=== PATIENT | female | born 1975 | race Two or more races ===

== ENCOUNTER 2023-08-09 11:04 | Outpatient (RCR) | payer BC, SELFPAY ==
[2023-07-13 13:23] LABS: % Basophils 1.2 % (0-2); % Eosinophils 3.1 % (0-6); % Lymphocytes 40.9 % (20.5-51.1); % Monocytes 7.1 % (1.7-9.3); % Neutrophils 47.7 % (42.2-75.2); Absolute Basophils 0.1 10^3/uL (0-0.2); Absolute Eosinophils 0.1 10^3/uL (0-0.7); Absolute Lymphocytes 1.7 10^3/uL (1.2-3.4); Absolute Monocytes 0.3 10^3/uL (0.1-0.6); Hematocrit 37.1 % (37.0-47.0); Hemoglobin 12.8 g/dL (12.0-16.0); Mean Corp Hgb Conc. 34.5 g/dL (33.0-37.0); Mean Corpuscular Volume 89.8 fL (81.0-99.0); Mean Platelet Volume 9.5 fL (7.4-10.4); Platelet Count 238 10^3/uL (130-400); Red Blood Cell Count 4.13 10^6/uL (4.20-5.40); Red Cell Dist. Width 15.4 % (11.5-14.5); White Blood Cell Count 4.2 10^3/uL (4.8-10.8)
[2023-07-13 14:37] LABS: ALT (SGPT) 35 U/L (0-35); AST (SGOT) 30 U/L (14-36); Albumin 4.8 g/dl (3.5-5.0); Alkaline Phosphatase 65 U/L (38-126); Blood Urea Nitrogen 10 mg/dl (7-17); Carbon Dioxide 28 mmol/L (22-30); Chloride 104 mmol/L (98-107); Glucose 100 mg/dl (70-99); Potassium 4.3 mmol/L (3.5-5.1); Sodium 140 mmol/L (135-145); Total Bilirubin 0.5 mg/dl (0.2-1.3); Total Protein 7.9 g/dl (6.3-8.2); eGFR > 60.00
[2023-07-14 14:40] VITALS: BP 131/74
[2023-07-14] MEDS: XGEVA 120 MG SC (15:05)
[2023-07-14] MEDS: LEUPROLIDE 11.25 MG IM (15:06)
[2023-08-09 11:15] LABS: % Eosinophils 2.7 % (0-6); % Immature Granulocytes 0.2 % (0-0.5); % Lymphocytes 43.4 % (20.5-51.1); % Monocytes 8.4 % (1.7-9.3); % Neutrophils 44.3 % (42.2-75.2); Absolute Eosinophils 0.1 10^3/uL (0-0.7); Absolute Lymphocytes 1.8 10^3/uL (1.2-3.4); Absolute Monocytes 0.3 10^3/uL (0.1-0.6); Absolute Neutrophils 1.8 10^3/uL (1.4-6.5); Hemoglobin 12.9 g/dL (12.0-16.0); Mean Corp Hgb Conc. 34.9 g/dL (33.0-37.0); Mean Corpuscular Hgb 31.2 pg (27.0-31.0); Mean Corpuscular Volume 89.6 fL (81.0-99.0); Mean Platelet Volume 9.6 fL (7.4-10.4); Platelet Count 231 10^3/uL (130-400); Red Blood Cell Count 4.13 10^6/uL (4.20-5.40)
[2023-08-09 12:08] LABS: ALT (SGPT) 30 U/L (0-35); AST (SGOT) 28 U/L (14-36); Albumin 4.7 g/dl (3.5-5.0); Alkaline Phosphatase 66 U/L (38-126); Blood Urea Nitrogen 10 mg/dl (7-17); Calcium 9.1 mg/dl (8.4-10.2); Carbon Dioxide 27 mmol/L (22-30); Chloride 107 mmol/L (98-107); Glucose 94 mg/dl (70-99); Potassium 4.2 mmol/L (3.5-5.1); Sodium 141 mmol/L (135-145); Total Bilirubin 0.6 mg/dl (0.2-1.3); Total Protein 7.8 g/dl (6.3-8.2); eGFR > 60.00
== END 2023-08-10 15:44 | disposition home or self-care (01) ==
LOC: OID 11:04
PROVIDERS: ATTENDING PHYSICIAN Internal Medicine Hematology & Oncology; PRIMARYCARE PHYSICIAN Internal Medicine
DX: C50.412 Malignant neoplasm of upper-outer quadrant of left female breast (principal); C79.51 Secondary malignant neoplasm of bone; R93.7 Abnormal findings on diagnostic imaging of other parts of musculoskeletal system; R74.01 Elevation of levels of liver transaminase levels
CPT/HCPCS: 96372; 36415; 80053; 85025; 96402; J0897; J1950

== ENCOUNTER → 2023-09-02 09:13 | Outpatient (REF) | payer BC, SELFPAY | LOC: PET 09:13 | PROVIDERS: ATTENDING PHYSICIAN Internal Medicine Hematology & Oncology | DX: C50.412 Malignant neoplasm of upper-outer quadrant of left female breast (principal) | CPT/HCPCS: 78815; A9552 ==

== ENCOUNTER 2023-09-07 15:08 | Outpatient (RCR) | payer BC, SELFPAY | END 2023-09-07 23:59 | disposition home or self-care (01) | LOC: RPT 15:08 | PROVIDERS: ATTENDING PHYSICIAN Internal Medicine Hematology & Oncology; FAMILY PHYSICIAN Internal Medicine | DX: R93.7 Abnormal findings on diagnostic imaging of other parts of musculoskeletal system (principal); C79.51 Secondary malignant neoplasm of bone; C50.412 Malignant neoplasm of upper-outer quadrant of left female breast; Z73.6 Limitation of activities due to disability | CPT/HCPCS: 97110; 97112; 97161 ==

== ENCOUNTER 2023-10-06 15:38 | Outpatient (RCR) | payer BC, SELFPAY ==
[2023-10-05 14:17] LABS: % Basophils 1.1 % (0-2); % Eosinophils 2.5 % (0-6); % Immature Granulocytes 0.2 % (0-0.5); % Lymphocytes 41.3 % (20.5-51.1); % Monocytes 5.8 % (1.7-9.3); % Neutrophils 49.1 % (42.2-75.2); Absolute Basophils 0.1 10^3/uL (0-0.2); Absolute Eosinophils 0.1 10^3/uL (0-0.7); Absolute Lymphocytes 1.9 10^3/uL (1.2-3.4); Absolute Monocytes 0.3 10^3/uL (0.1-0.6); Absolute Neutrophils 2.2 10^3/uL (1.4-6.5); Hematocrit 38.4 % (37.0-47.0); Hemoglobin 13.5 g/dL (12.0-16.0); Mean Corp Hgb Conc. 35.2 g/dL (33.0-37.0); Mean Corpuscular Hgb 32.7 pg (27.0-31.0); Mean Platelet Volume 9.9 fL (7.4-10.4); Platelet Count 224 10^3/uL (130-400); Red Blood Cell Count 4.13 10^6/uL (4.20-5.40); White Blood Cell Count 4.5 10^3/uL (4.8-10.8)
[2023-10-05 16:07] LABS: ALT (SGPT) 43 U/L (0-35); AST (SGOT) 38 U/L (14-36); Alkaline Phosphatase 63 U/L (38-126); Blood Urea Nitrogen 12 mg/dl (7-17); Calcium 10.2 mg/dl (8.4-10.2); Carbon Dioxide 27 mmol/L (22-30); Chloride 104 mmol/L (98-107); Glucose 106 mg/dl (70-99); Potassium 3.9 mmol/L (3.5-5.1); Sodium 139 mmol/L (135-145); Total Bilirubin 0.4 mg/dl (0.2-1.3); Total Protein 8.5 g/dl (6.3-8.2); eGFR > 60.00
[2023-10-06 13:45] VITALS: BP 135/99
[2023-10-06] MEDS: LEUPROLIDE 11.25 MG IM (15:52)
== END 2023-10-07 09:07 | disposition home or self-care (01) ==
LOC: OID 15:38
PROVIDERS: ATTENDING PHYSICIAN Internal Medicine Hematology & Oncology
DX: Z51.11 Encounter for antineoplastic chemotherapy (principal); C79.51 Secondary malignant neoplasm of bone; C50.912 Malignant neoplasm of unspecified site of left female breast; R93.7 Abnormal findings on diagnostic imaging of other parts of musculoskeletal system; Z17.0 Estrogen receptor positive status [ER+]
CPT/HCPCS: 36415; 80053; 85025; 96402; J1950

== ENCOUNTER → 2023-10-21 12:03 | Outpatient (REF) | payer BC, SELFPAY ==
[2023-10-21 12:28] LABS: % Basophils 1.2 % (0-2); % Immature Granulocytes 0.3 % (0-0.5); % Lymphocytes 19.9 % (20.5-51.1); % Monocytes 6.9 % (1.7-9.3); % Neutrophils 70.7 % (42.2-75.2); Absolute Basophils 0.1 10^3/uL (0-0.2); Absolute Eosinophils 0.1 10^3/uL (0-0.7); Absolute Lymphocytes 1.2 10^3/uL (1.2-3.4); Absolute Monocytes 0.4 10^3/uL (0.1-0.6); Absolute Neutrophils 4.2 10^3/uL (1.4-6.5); Hemoglobin 11.6 g/dL (12.0-16.0); Mean Corp Hgb Conc. 36.3 g/dL (33.0-37.0); Mean Corpuscular Hgb 33.1 pg (27.0-31.0); Mean Corpuscular Volume 91.4 fL (81.0-99.0); Mean Platelet Volume 9.5 fL (7.4-10.4); Nucleated Red Blood Cells % 0 %; Platelet Count 272 10^3/uL (130-400); Red Cell Dist. Width 13.2 % (11.5-14.5)
[2023-10-21 12:56] LABS: ALT (SGPT) 57 U/L (0-35); AST (SGOT) 51 U/L (14-36); Albumin 4.7 g/dl (3.5-5.0); Alkaline Phosphatase 75 U/L (38-126); Blood Urea Nitrogen 9 mg/dl (7-17); Calcium 9.2 mg/dl (8.4-10.2); Carbon Dioxide 30 mmol/L (22-30); Chloride 105 mmol/L (98-107); Glucose 99 mg/dl (70-99); Sodium 139 mmol/L (135-145); Total Bilirubin 0.4 mg/dl (0.2-1.3); Total Protein 7.9 g/dl (6.3-8.2); eGFR > 60.00
== END ==
LOC: REG 12:03
PROVIDERS: ATTENDING PHYSICIAN Student in an Organized Health Care Education/Training Program
DX: J06.9 Acute upper respiratory infection, unspecified (principal); D84.9 Immunodeficiency, unspecified
CPT/HCPCS: 36415; 80053; 85025; 87502

== ENCOUNTER 2023-10-23 19:26 | Inpatient (IN) | payer BC, SELFPAY ==
[2023-10-23 12:56] VITALS: BP 122/87
--- NOTE | 2023-10-23 14:54 | ED.GENMED ---
History of Present Illness
<Marylu Granados PA-C - Last Filed: 10/24/23 13:00>
General
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
Source: patient
Exam Limitations: none
Time Seen by Provider: 10/23/23 14:07
Nursing documentation reviewed up to this point in time: agreed with
Travel History
Have you had any contact with someone who has COVID-19?: No
Do you have any symptoms of coronavirus? Fever > 100 degrees, chills, cough, shortness of breath, sore throat, loss of taste or smell, muscle aches, or headache?: No
History of Present Illness
History of Present Illness:
48-year-old female with a history of stage IV breast CA on the hormone therapy
Complains of left labial majora swelling over the last several days. She says it actually started out as a few bumps on the left labia majora and then the right labia had 1 bump as well. She says that because of ongoing issues with temperatures
that have been elevated in the 100-1 01 range over the last month she was recently seen by infectious disease. Infectious disease physician noted the bumps and called her in doxycycline and Flagyl. Patient has been taking them for the last 2 days
but she had worsening swelling and pain to the left labia which is larger in size and diffusely red. She also has some pain in her left inguinal region but does not appreciate any lymph nodes. She has had temperatures, last taken was last night
and was around 100. She has not taken any tylenol or ibuprofen today for pain.
She denies nausea, vomiting, diarrhea, cough, cold symptoms, urinary symptoms. Patient has not had blood cultures checked while she had these fevers. She has had flu and COVID and RSV which were negative.
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
Past History
<Marylu Granados PA-C - Last Filed: 10/24/23 13:00>
Past History
ED Past Medical History: GERD, HTN and Other (Menorrhagia)
ED Past Surgical History: and Gynecological (Hysterectomy September 15, 2021)
Social History
Tobacco: Non-smoker
Personal:
Living: with family
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
Family History
Family History: Other (Noncontributory)
Review of Systems
<Marylu Granados PA-C - Last Filed: 10/24/23 13:00>
Review of Systems
Allergies reviewed?: Yes
All Other Systems: Not applicable
Phy Exam
<KOBY Dixon Last Filed: 10/24/23 13:00>
Physical Exam
Physical Exam:
GENERAL: Alert , in no apparent distress
EYE: pupils equal and reactive
NECK: Supple
ENT: o/p clr, mmm.
CARDIAC: Regular rate and rhythm .no edema
LUNGS: Clear breath sounds bilaterally, no acute respiratory distress, no wheezes/rales/rhonchi
ABDOMEN: Soft, without focal tenderness, no r/g, no cvat, normal bowel sounds
Left inguinal region mildly tender, no lymphadenopathy appreciated, no swelling
: Mildly swollen left labia majora, there is a very subtle possibility of a small half a centimeter sized indurated area at the inferior aspect, there is no fluctuance, labia minora normal, no Bartholin's gland cyst
Left inguinal region mildly tender without erythema, no crepitus
NEUROLOGICAL: Alert and oriented, no focal neuro deficits
SKIN: Warm and dry, skin intact.
MUSCULOSKELETAL: No edema, well perfused. neg lavelle's sign
PSYCH: Normal and appropriate interaction.
Course
<KOBY Dixon Last Filed: 10/24/23 13:00>
Orders/Labs/Results
Orders:
Orders
10/23/23 14:43
CT Abd/Pel (IV only)-DH only Urgent
Comment: breast ca stageIV
Reason For Exam: left labial swelling and redness despite abx
CR Chest - 2 Views Urgent
Comment:
Reason For Exam: fever x 1 mo
10/23/23 14:44
0.9% Sodium Chloride 1000 ml [Nss] 1,000 ml IV BOLUS
Ketorolac [Toradol] 15 mg IV NOW STA
10/23/23 Dinner
Regular
At Your Request: Full Participation
Does patient need a safe tray?: No
10/23/23 15:11
Complete Blood Count/With Diff Urgent
Comprehensive Metabolic Panel Urgent
Lactic Acid Urgent
Urinalysis Reflex To Culture Urgent
Date Specimen was Collected: 10/23/23
Time Specimen was Collected: 14:54
Blood Culture Q30M
GERRY Source: Blood/Venous
Specimen Description:
10/23/23 18:12
CAP AND HAT PRODUCTION SUPERVISOR CONSULT Routine
Consulting Provider: Chastity Silva
Was physician already notified: Yes
10/23/23 18:20
Blood Culture Q30M
GERRY Source: Blood/Venous
Specimen Description:
10/23/23 18:24
Ampicillin/Sulbactam 3 G [Unasyn] 3 gm 0.9% Sodium Chloride 100 ml [Nss] 100 ml IV NOW
Vancomycin [Vancocin] 1,250 mg 0.9% Sodium Chloride 250 ml [Nss] 250 ml IV NOW
10/23/23 19:02
Admit/Transfer Patient As Directed
Co-Sign Provider:
Level of Care: Inpatient admission
Assign to:: Medical/Surgical
Physician / Group: balaji smith
Diagnosis: left labial cellulitis, chronic fevers
Reason for Hospitalization: left labial cellulitis
Expected length of stay greater than two midnights?: Yes
ELOS- Estimated Length of Stay in days: 3
I certify the patient meets the requirements for IP care: Yes
10/23/23 19:04
Code Status As Directed
Resuscitation Status: Full Code
10/23/23 19:23
Tramadol HCl [Ultram] 50 mg PO NOW STA
10/23/23 21:55
Bisacodyl [Dulcolax] 10 mg RECTAL [id number] PRN
Docusate W/Senna [Senokot-S] 1 tablet PO BIDPRN PRN
Ketorolac [Toradol] 30 mg IV Q6HPRN PRN
Oxycodone [Roxicodone] 5 mg PO Q4HPRN PRN
Polyethylene Glycol Powder [Miralax] 17 grams PO DAILYPRN PRN
Tramadol HCl [Ultram] 50 mg PO Q6HPRN PRN
10/23/23 21:55
Activity As Directed
Activity Level: As Tolerated
Pneumatic Compression Sleeves As Directed
Type: Knee high
Vital Signs As Directed
Frequency: Per unit guidelines
Warm Compress [Heat Application] As Directed
Apply warm compress to (location):: left labia
Compress Frequency:: Intermittent q2h
Duration of Application: No longer than 20 minutes
Comment: moist heat
Ot Eval And Treat Routine
Pt Eval And Treat Routine
Activity Level: As Tolerated
DX Deep Vein Thrombosis Video Routine
10/24/23 00:00
Ampicillin/Sulbactam 3 G [Unasyn] 3 gm 0.9% Sodium Chloride 100 ml [Nss] 100 ml IV Q6H
10/24/23 07:37
Complete Blood Count/With Diff IN AM
Comprehensive Metabolic Panel IN AM
10/25/23 06:00
Complete Blood Count/With Diff IN AM
Comprehensive Metabolic Panel IN AM
10/26/23 06:00
Complete Blood Count/With Diff IN AM
Comprehensive Metabolic Panel IN AM
Abnormal Lab Results
10/23/23
15:11
RBC 3.67 L 10^6/uL
(4.20-5.40)
Hct 33.0 L %
(37.0-47.0)
MCH 32.7 H pg
(27.0-31.0)
Absolute Monos (auto) 0.7 H 10^3/uL
(0.1-0.6)
Monocytes % 10.3 H %
(1.7-9.3)
Potassium 3.3 L mmol/L
(3.5-5.1)
Glucose 104 H mg/dl
(70-99)
AST 101 H U/L
(14-36)
ALT 181 H U/L
(0-35)
10/23/23 15:11
10/23/23 15:11
Vital Signs
Temp: 100.6 F
Initial and Last Documented VS:
Initial Vital Signs
Temp Pulse Resp BP Pulse Ox
98.6 F 94 18 122/87 98
10/23/23 12:56 10/23/23 12:56 10/23/23 12:56 10/23/23 12:56 10/23/23 12:56
Last Documented Vital Signs
Temp Pulse Resp BP Pulse Ox
97.9 F 75 18 111/73 98
10/24/23 07:30 10/24/23 07:30 10/24/23 07:30 10/24/23 07:30 10/24/23 07:30
<Cruzito Boucher, DO - Last Filed: 10/23/23 18:15>
Orders/Labs/Results
Orders:
Orders
10/23/23 14:43
CT Abd/Pel (IV only)-DH only Urgent
Comment: breast ca stageIV
Reason For Exam: left labial swelling and redness despite abx
CR Chest - 2 Views Urgent
Comment:
Reason For Exam: fever x 1 mo
10/23/23 14:44
0.9% Sodium Chloride 1000 ml [Nss] 1,000 ml IV BOLUS
Ketorolac [Toradol] 15 mg IV NOW STA
10/23/23 Dinner
Regular
At Your Request: Full Participation
Does patient need a safe tray?: No
10/23/23 15:11
Complete Blood Count/With Diff Urgent
Comprehensive Metabolic Panel Urgent
Lactic Acid Urgent
Urinalysis Reflex To Culture Urgent
Date Specimen was Collected: 10/23/23
Time Specimen was Collected: 14:54
Blood Culture Q30M
GERRY Source: Blood/Venous
Specimen Description:
10/23/23 18:12
CAP AND HAT PRODUCTION SUPERVISOR CONSULT Routine
Consulting Provider: Chastity Silva
Was physician already notified: Yes
10/23/23 18:20
Blood Culture Q30M
GERRY Source: Blood/Venous
Specimen Description:
10/23/23 18:24
Ampicillin/Sulbactam 3 G [Unasyn] 3 gm 0.9% Sodium Chloride 100 ml [Nss] 100 ml IV NOW
Vancomycin [Vancocin] 1,250 mg 0.9% Sodium Chloride 250 ml [Nss] 250 ml IV NOW
10/23/23 19:02
Admit/Transfer Patient As Directed
Co-Sign Provider:
Level of Care: Inpatient admission
Assign to:: Medical/Surgical
Physician / Group: balaji smith
Diagnosis: left labial cellulitis, chronic fevers
Reason for Hospitalization: left labial cellulitis
Expected length of stay greater than two midnights?: Yes
ELOS- Estimated Length of Stay in days: 3
I certify the patient meets the requirements for IP care: Yes
10/23/23 19:04
Code Status As Directed
Resuscitation Status: Full Code
10/23/23 19:23
Tramadol HCl [Ultram] 50 mg PO NOW STA
10/23/23 21:55
Bisacodyl [Dulcolax] 10 mg RECTAL [id number] PRN
Docusate W/Senna [Senokot-S] 1 tablet PO BIDPRN PRN
Ketorolac [Toradol] 30 mg IV Q6HPRN PRN
Oxycodone [Roxicodone] 5 mg PO Q4HPRN PRN
Polyethylene Glycol Powder [Miralax] 17 grams PO DAILYPRN PRN
Tramadol HCl [Ultram] 50 mg PO Q6HPRN PRN
10/23/23 21:55
Activity As Directed
Activity Level: As Tolerated
Pneumatic Compression Sleeves As Directed
Type: Knee high
Vital Signs As Directed
Frequency: Per unit guidelines
Warm Compress [Heat Application] As Directed
Apply warm compress to (location):: left labia
Compress Frequency:: Intermittent q2h
Duration of Application: No longer than 20 minutes
Comment: moist heat
Ot Eval And Treat Routine
Pt Eval And Treat Routine
Activity Level: As Tolerated
DX Deep Vein Thrombosis Video Routine
10/24/23 00:00
Ampicillin/Sulbactam 3 G [Unasyn] 3 gm 0.9% Sodium Chloride 100 ml [Nss] 100 ml IV Q6H
10/24/23 07:37
Complete Blood Count/With Diff IN AM
Comprehensive Metabolic Panel IN AM
10/25/23 06:00
Complete Blood Count/With Diff IN AM
Comprehensive Metabolic Panel IN AM
10/26/23 06:00
Complete Blood Count/With Diff IN AM
Comprehensive Metabolic Panel IN AM
Abnormal Lab Results
10/23/23
15:11
RBC 3.67 L 10^6/uL
(4.20-5.40)
Hct 33.0 L %
(37.0-47.0)
MCH 32.7 H pg
(27.0-31.0)
Absolute Monos (auto) 0.7 H 10^3/uL
(0.1-0.6)
Monocytes % 10.3 H %
(1.7-9.3)
Potassium 3.3 L mmol/L
(3.5-5.1)
Glucose 104 H mg/dl
(70-99)
AST 101 H U/L
(14-36)
ALT 181 H U/L
(0-35)
10/23/23 15:11
10/23/23 15:11
Vital Signs
Initial and Last Documented VS:
Initial Vital Signs
Temp Pulse Resp BP Pulse Ox
98.6 F 94 18 122/87 98
10/23/23 12:56 10/23/23 12:56 10/23/23 12:56 10/23/23 12:56 10/23/23 12:56
Last Documented Vital Signs
Temp Pulse Resp BP Pulse Ox
97.9 F 75 18 111/73 98
10/24/23 07:30 10/24/23 07:30 10/24/23 07:30 10/24/23 07:30 10/24/23 07:30
Maureenlt;Marylu Granados PA-C - Last Filed: 10/24/23 13:00>
MDM/Problems Addressed
Differential Diagnosis Includes:
Cellulitis, abscess, necrotizing process
MDM/Problems Addressed:
48-year-old female with stage IV breast cancer with ongoing elevated temperatures over the last month presents for painful swelling to her left labia majora a few days ago with fever to 100.6 currently despite 2 days of doxycycline and Flagyl
ordered by the infectious disease doctor
She has no history of diabetes, there is no obvious gangrenous infection, there is no obvious Morales's
The history would suggest may be folliculitis with cellulitis, there is not an obvious appreciated abscess large enough for incision and drainage without imaging at this point. Seen by ED attending who agreed. Will order sepsis labs and CT of the
abdomen pelvis and likely admit to the hospital for IV antibiotics for failure of outpatient therapy
<Marylu Granados PA-C - Last Filed: 10/24/23 13:00>
*Critical Care Note
Total Time (30-74mins, 75-104mins- exclusive of procedures): Not Applicable
<Cruzito Boucher DO - Last Filed: 10/23/23 18:15>
Update Note
Update Note:
6:[address] negative for acute pathology. There is no abscess collection to drain. Given the failure of outpatient antibiotics, will start IV antibiotics. Will start vancomycin and Unasyn.
ED Attending Note
<Marylu Granados PA-C - Last Filed: 10/24/23 13:00>
-
Portions of this chart may have been created with voice recognition software.� Occasional wrong word or��sound alike� substitutions may have occurred due to the inherent limitations of voice recognition software.
<Cruzito Boucher, DO - Last Filed: 10/23/23 18:15>
ED Attending Note
Patient seen and examined by attending physician: Yes
I performed the substantive portion of visit, reviewed & personally made and approve the management plan that is documented in note by myself or VASU.: Yes
ED Attending Note:
I have seen and evaluated the patient with a [id number] encounter. I have spoken to the advance practicer provider and involved in the medical history, the physical exam, medical decision making.
Evaluation and management service: agree unless noted differently below.
Results interpretation: agree unless noted differently below.
Focused HPI: 48-year-old female presenting with vaginal pain. Patient has stage IV breast cancer and developed bumps around her vagina. She saw infectious disease and was started on doxycycline. She had already finished a course of Augmentin.
Patient is concerned because her vagina is swollen and painful
Physical exam: Sitting bed comfortably. Small palpable nodule in the left labia. Mild surrounding cellulitic changes
Medical Decision Making: Unsure if this is abscess or not. Patient appears to be failing outpatient antibiotics. Will obtain CT looking for any evidence of deep space infection or abscess.
Discharge Plan
Departure
Patient Disposition: Admit
Date of Disposition: 10/23/23
Time of Disposition: 18:15
Admit to: Med/Surg
Presentation/result/management discussed w/ accepting MD/DO: Hospitalist
Discharge Problem:
Cellulitis
Interventions
Interventions:
*Risk Screen - Suicide Last Done: 10/23/23 12:56
*General Assessment Last Done: 10/23/23 12:56
*Neglect/Abuse Screening Last Done: 10/23/23 15:04
ED- Fall Risk Assessment Last Done: 10/23/23 15:04
*ED COVID-19 Vaccine History Last Done: 10/23/23 12:56
*Nursing Disposition Last Done: 10/23/23 22:02
ED-Female Genitourinary Assessment Last Done: 10/23/23 15:04
Discharge Date and Time
Discharge Date/Time: 10/23/23 22:04
[2023-10-23 15:01] VITALS: BMI 27.1
[2023-10-23] MEDS: TORADOL 15 MG IV (15:14)
[2023-10-23] MEDS: NSS 1000 IV (15:17)
[2023-10-23 15:35] LABS: % Basophils 0.8 % (0-2); % Eosinophils 0.6 % (0-6); % Immature Granulocytes 0.3 % (0-0.5); % Lymphocytes 24.1 % (20.5-51.1); % Monocytes 10.3 % (1.7-9.3); % Neutrophils 63.9 % (42.2-75.2); Absolute Basophils 0.1 10^3/uL (0-0.2); Absolute Lymphocytes 1.6 10^3/uL (1.2-3.4); Absolute Monocytes 0.7 10^3/uL (0.1-0.6); Absolute Neutrophils 4.2 10^3/uL (1.4-6.5); Mean Corp Hgb Conc. 36.4 g/dL (33.0-37.0); Mean Corpuscular Hgb 32.7 pg (27.0-31.0); Mean Corpuscular Volume 89.9 fL (81.0-99.0); Mean Platelet Volume 9.3 fL (7.4-10.4); Nucleated Red Blood Cells % 0 %; Platelet Count 277 10^3/uL (130-400); Red Blood Cell Count 3.67 10^6/uL (4.20-5.40); White Blood Cell Count 6.5 10^3/uL (4.8-10.8)
[2023-10-23 15:37] LABS: Urine Albumin Negative (Neg - Trace); Urine Bilirubin Negative (Negative); Urine Character Clear (Clear); Urine Color Straw; Urine Glucose Negative (Negative); Urine Ketone Negative (Negative); Urine Leukocyte Negative (Negative); Urine Nitrite Negative (Negative); Urine Occult Blood Negative (Negative); Urine Urobilinogen Negative (Neg - 1+)
[2023-10-23 15:38] LABS: Lactic Acid 0.9 mmol/L (0.7-2.0)
[2023-10-23 15:47] LABS: ALT (SGPT) 181 U/L (0-35); AST (SGOT) 101 U/L (14-36); Albumin 4.8 g/dl (3.5-5.0); Alkaline Phosphatase 102 U/L (38-126); Blood Urea Nitrogen 9 mg/dl (7-17); Calcium 9.9 mg/dl (8.4-10.2); Carbon Dioxide 26 mmol/L (22-30); Chloride 103 mmol/L (98-107); Estimated Creatinine Clearance 104 ml/min; Glucose 104 mg/dl (70-99); Potassium 3.3 mmol/L (3.5-5.1); Sodium 140 mmol/L (135-145); Total Bilirubin 0.5 mg/dl (0.2-1.3); Total Protein 8.2 g/dl (6.3-8.2); eGFR > 60.00
--- NOTE | 2023-10-23 18:40 | HPS.HSE ---
Family Physician
<IRVIN Block - Last Filed: 10/23/23 19:22>
-
Family Physician: Hailee Novoa
Chief Complaint
<IRVIN Block - Last Filed: 10/23/23 19:22>
History of Present Illness
48-year-old female complaining of left labial swelling over the last several days she reports it started as a few bumps on the left labia majora with 1 bump to the right labia majora. She had ongoing temperatures 100-103 over the last month and was
being treated for sinusitis finished course of Augmentin but had recurrence of fevers.. She was seen by infectious disease who placed on doxycycline and Flagyl. She reports over the last 2 days she has had worsening swelling and pain to the left
labia with diffuse erythema and temperature of 100.6 F. She has been taking Tylenol on and off of the past month but has not over the past few days as she and her have been concerned about her increasing transaminitis. She has not had any
blood cultures drawn for 1 month of fever. She denies any vaginal discharge, itching, headache, chest pain, palpitations, shortness of breath, cough, abdominal pain, nausea, vomiting, diarrhea.
She is past medical history of stage IV breast cancer on current hormone therapy Dx April 2023 ER positive, negative genetic testing, HTN, migraines, GERD, uterine fibroids/hysterectomy bilateral salpingo-oophorectomy, ureteral stent, iron
deficiency anemia
<Diego Alexandra MD - Last Filed: 10/24/23 01:04>
-
None
Medical History
<IRVIN Block - Last Filed: 10/23/23 19:22>
Past Medical History
Past Medical History: Reports Other
Additional Past Medical History:
Stage IV breast cancer on current hormone therapy Dx April 2023 ER positive, negative genetic testing-on Lupron/letrozole, Xgeva and Verzenio on hold
HTN
migraines
GERD
uterine fibroids/hysterectomy bilateral salpingo-oophorectomy required ureteral stent during surgery had postop sepsis
iron deficiency anemia
Past Surgical History: Reports Other
Additional Past Surgical History:
uterine fibroids/hysterectomy bilateral salpingo-oophorectomy required ureteral stent during surgery had postop sepsis
Social History
Tobacco: Non-smoker
Alcohol: None
Drug: None
Personal:
Living: With Family ()
Family History
Family History: Other (No family history of breast cancer)
Allergies / Home Medications
Allergies reflects when Allergies were last updated in [facility].
Home Medications with original date entered in [facility]
<Diego Alexandra MD - Last Filed: 10/24/23 01:04>
Allergies / Home Medications
Allergy/Medication List:
Allergies
Allergy/AdvReac Type Severity Reaction Status Date / Time
codeine Allergy Nausea / Verified 10/23/23 12:59
Vomiting
Sulfa (Sulfonamide Allergy Rash Verified 10/23/23 12:59
Antibiotics)
Home Medications
sertraline 100 mg tablet (Zoloft) 50 mg PO HS 04/21/23
Excedrin Migraine 1 tab PO DAILY PRN migraine 10/23/23
Flagyl 500 mg PO TID 10/23/23
Lupron Depot (3 month) 3.75 mg IM DIRECTED 10/23/23
M.V.I. 1 tab PO DAILY 10/23/23
abemaciclib 150 mg tablet (Verzenio) 150 mg PO BID 10/23/23
acetaminophen 500 mg tablet (Tylenol Extra Strength) 500 mg PO TIDPRN PRN mild pain/fever 10/23/23
amlodipine 10 mg tablet 10 mg PO DAILY 10/23/23
denosumab 120 mg/1.7 mL (70 mg/mL) subcutaneous solution (Xgeva) 120 mg SC Q4W 10/23/23
doxycycline hyclate 100 mg tablet 100 mg PO BID 10/23/23
hydrochlorothiazide 12.5 mg tablet 12.5 mg PO DAILY 10/23/23
ibuprofen 200 mg tablet 200 mg PO BIDPRN PRN mild pain 10/23/23
lansoprazole 40 mg PO DAILY 10/23/23
letrozole 2.5 mg tablet 2.5 mg PO DAILY 10/23/23
ncycbziz-mzj-cykuz ac 400 mcg-calcium carb 500 mg-vit K1 20 mcg tablet (Women's 50 Plus Multivitamin) 1 tab PO DAILY 10/23/23
zolpidem 10 mg tablet 10 mg PO HS PRN insomnia 10/23/23
Review of Systems
<IRVIN Block - Last Filed: 10/23/23 19:22>
-
History Source: Patient and Family ( at bedside)
A 12 point ROS was completed and negative except as noted: Yes
Constitutional: Reports Fever and Chills; Denies Fatigue
EENT: Denies Sore Throat or Runny Nose
Respiratory: Denies Cough or Trouble Breathing
Cardiac: Denies Chest Pain, Diaphoresis, Palpitations or Syncope
Abdomen/GI: Reports Abdominal Pain; Denies Nausea, Vomiting, Diarrhea, Constipated or Bloody Stools
: Reports Other (Left labial swelling/slight erythema); Denies Dysuria, Frequency, Flank Pain, Incontinence or Difficulty Voiding
Musculoskeletal: Denies Joint Pain or Edema
Skin: Denies Itching or Rash
Neurological: Denies Dizzy, Headache or Weakness
Endocrine: Reports No Symptoms
Hematologic/Lymphatic: Reports No Symptoms
Psych: Reports Calm
Physical Exam
<IRVIN Block - Last Filed: 10/23/23 19:22>
Vital Signs
Vital Signs
Temp Pulse Resp BP Pulse Ox
100.6 F H 94 18 122/87 98
10/23/23 15:00 10/23/23 12:56 10/23/23 12:56 10/23/23 12:56 10/23/23 12:56
Physical Exam
General: Conversant, Pain and Fever
HEENT: NormoCephalic, Anicteric and PERRLA
Respiratory: Clear; No Wheezes, Rales or Rhonchi
Cardiac: S1/S2 and Regular Rhythm; No Murmur, Rub, Gallop or Peripheral Edema
Breast: Deferred by me
GI: Soft, Non Tender, Non Distended, Normal Bowel Sounds and No Hepatosplenomegaly
Genito-urinary: Other (Left labial majora swelling with tenderness and slight erythema no open areas or drainage)
Musculoskeletal: No Clubbing, No Cyanosis and No Edema
Skin: Warm and Dry; No Rash or Jaundice
Neuro: AO x 3, No Motor Deficits, Nonfocal/grossly intact, Cranial Nerves Intact and No Sensory Deficits; No Slurred Speech, Facial Droop or Tremors
Psych: Calm
Laboratory Results
<IRVIN Block - Last Filed: 10/23/23 19:22>
-
10/23/23 15:11
10/23/23 15:11
Laboratory Results
Lactic Acid 0.9 mmol/L (0.7-2.0) 10/23/23 15:11
Total Bilirubin 0.5 mg/dl (0.2-1.3) 10/23/23 15:11
AST 101 U/L (14-36) H 10/23/23 15:11
ALT 181 U/L (0-35) H 10/23/23 15:11
Alkaline Phosphatase 102 U/L (38-126) 10/23/23 15:11
Data Reviewed
<IRVIN Block - Last Filed: 10/23/23 19:22>
-
CT Scan: Report Reviewed by me
Lab Data: Labs Reviewed by me
Impression/Plan
<IRVIN Block - Last Filed: 10/23/23 19:22>
-
Impression/plan:
Admit to [facility]
#Vaginal cellulitis left labial
-On current course of doxycycline 100 mg twice daily x 3 days and Flagyl 500 mg 3 times daily x 2 days per ID
WBC 6.5, temp 100.6 F, HR 94
UA negative
-Warm compresses to left labia
-Blood cultures x 2
-IV Toradol, mild pain, tramadol moderate pain, oxycodone with Zofran severe pain
-IV vancomycin, IV Unasyn
-Consult TIPPLE TENDER-follows with Dr. López
CT abdomen pelvis IV contrast only
1. No significant acute abnormality identified in the abdomen or pelvis
2. Scattered small osteoblastic lesions throughout the visualized bones similar to prior
3. No overt inflammatory change or fluid collections within the pelvis/perineum
CXR: No acute cardiopulmonary disease
#Hypokalemia
K3.3
KCl 40 mEq
-Continue HCTZ 12.5 mg daily
#Acute transaminitis
AST 101, ALT 181(have increased from baseline 40s since September)
#Stage IV breast cancer ER positive Dx April 2023
-On current hormone therapy Lupron every 3 months last dose September 2023, letrozole 2.5 mg daily
-Follows with [facility]
-Xgeva and verzenio (abemaciclib)currently on hold past 2 to 3 months due to upcoming dental procedure
#HTN�benign
Continue amlodipine 5 mg daily, HCTZ 12.5 mg daily
#Migraine history-no current headache
-Takes as needed Excedrin
#GERD
-Takes episodic lansoprazole
#Hx uterine fibroids/hysterectomy bilateral salpingo-oophorectomy required Hx ureteral stent during surgery had postop sepsis
#Iron deficiency anemia
Hgb 12�stable
#Depression
Zoloft 50 mg daily-
DVT prophylaxis
SCDs
Full code
<Diego Alexandra MD - Last Filed: 10/24/23 01:04>
-
Impression/plan:
Admit to [facility]
#Vaginal cellulitis left labial
-On current course of doxycycline 100 mg twice daily x 3 days and Flagyl 500 mg 3 times daily x 2 days per ID
WBC 6.5, temp 100.6 F, HR 94
UA negative
-Warm compresses to left labia
-Blood cultures x 2
-IV Toradol, mild pain, tramadol moderate pain, oxycodone with Zofran severe pain
-IV vancomycin, IV Unasyn
-Consult TIPPLE TENDER-follows with Dr. López
CT abdomen pelvis IV contrast only
1. No significant acute abnormality identified in the abdomen or pelvis
2. Scattered small osteoblastic lesions throughout the visualized bones similar to prior
3. No overt inflammatory change or fluid collections within the pelvis/perineum
CXR: No acute cardiopulmonary disease
#Hypokalemia
K3.3
KCl 40 mEq
-Continue HCTZ 12.5 mg daily
#Acute transaminitis
AST 101, ALT 181(have increased from baseline 40s since September)
#Stage IV breast cancer ER positive Dx April 2023
-On current hormone therapy Lupron every 3 months last dose September 2023, letrozole 2.5 mg daily
-Follows with [facility]
-Xgeva and verzenio (abemaciclib)currently on hold past 2 to 3 months due to upcoming dental procedure
#HTN�benign
Continue amlodipine 5 mg daily, HCTZ 12.5 mg daily
#Migraine history-no current headache
-Takes as needed Excedrin
#GERD
-Takes episodic lansoprazole
#Hx uterine fibroids/hysterectomy bilateral salpingo-oophorectomy required Hx ureteral stent during surgery had postop sepsis
#Iron deficiency anemia
Hgb 12�stable
#Depression
Zoloft 50 mg daily-
DVT prophylaxis
SCDs
Full code
ADDENDUM
Patient seen and examined independently. Concur with the findings and assessment and plan in the TOP DISTRIBUTION EXECUTIVE note.
Briefly, has notable history of stage IV ER positive breast ca diagnosed last year and previously on chemo but now on hormone therapy pending dental work. She comes in to the ER for pain and swelling of the left labia majora. She has been having
intermittent fevers over the last 1 month with negative w/u including flu, covid, u/a. No blood cultures. Seen by ID 2 days ago when she had a small labial swelling and started on doxycycline + flagyl. Swelling worsened over the next 2 days
prompting ED visit. Her underlying fever profile is unchanged. Exam is of the labia majory shows soft tissue swelling without erythema, induration. CT abd/pelvis negative for abscess, neck fasciitis or other deep tissue infection. No significant
local adenopathy. Cellulitis suspected.
- trial of broader spec vanc and unasyn ok
- blood cultures sent, consider d/c abx if ngtd in 48 hours
- ID consultation
- video game engineer consultation
--- NOTE | 2023-10-23 19:00 | EDRN ---
Report received introduced myself to patient and started antibiotics
[2023-10-23] MEDS: UNASYN IV ×2 (19:13→23:28)
[2023-10-23 19:17] VITALS: BP 117/82
--- NOTE | 2023-10-23 20:01 | EDRN ---
OBGYN at bedside
--- NOTE | 2023-10-23 20:04 | CS.OBGYN ---
Consult Summary - GPS FIELD DATA COLLECTOR
-
48yo with a recent diagnosis of Stage IV Lobular CA of the Breast (currently being treated with Lupron, Letrozole, Denosumab, Abemaciclib) presents from home due to worsening swelling of her left labia over the last 4-5 days. She states
initially she was noticing various nodules/bumps along the bilateral labia majora L>R, then on the Left started to become more painful, then started to noticing swelling and erythema of the left labium, though no drainage. Of note, she has had
fevers for the past month, initially high grade thought to be related to a sinus infection- she was on augmentin. However fevers have returned and are now low grade Tmax 100.6 at home. With the return of fever and the labial changes, it was thought
she may have a folliculitis and she was started on flagyl and Doxycyline, however after 2 days of this her symptoms seem to be worsening so she presented here as she and her were concerned for Nec. Fascitis. Upon admission, a CT scan was
performed that was unremarkable.
PMHx: Stage IV lobular Breast CA, HTN, Migraines, depression
PSHx: LAY/BS (fibroids, HMB), C/S x2, Tubal Ligation, uterine wedge resection for cornual
POBHx: C/S x2, x1
FHx: mom- DM, HTN M. uncle- CAD
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
Meds: See Admission List
All: Codeine, Sulfa
ROS: Denies n/v, normal appetite. No URI symptoms currently
Vitals and Labs below
CT A/P: No enlarged lymph nodes, no inflammatory changes or fluid collection within the pelvis. Bladder normal, Osteoblastic lesions throughout the visualized bones
CXR: no acute process
Blood Cx: Pending
Gen: nad [email or web address]
Pelvic Exam: There is mild erythema and edema of the left labia, with moderate ttp in the region. No fluctuance appreciated. No crepitus, no significant induration, tissue feels soft. In the deeper labia I can feel 2 nodules vs cysts each <1cm in
size, and not connecting. No eruption to the surface and no drainage able to be expressed. The erythema does not extend to the mons pubis or into the inguinal fold. Labia minora is unremarkable. No palpable LN appreciated in the groin. On palpation
of the right labia, along the medial portion, I can also feel a small cystic lesion. this is non tender with no overlying erythema and no drainage expressed.
A/P: 48yo with Suspected labial cellulitis
1. Cellulitis: at this time, no obvious evidence of a drainable abscess both on physical exam and on CT scan. Also no real concern for Necrotizing fascitis at this time. Advised patient and her that we will monitor the labia every day that
she is here, if exam reveals a drainable collection, then I&D and cultures can be performed. Given failure of outpatient treatment, patient to be admitted and has been started on IV Unasyn and Vancomycin
-Blood cultures collected
-continue warm compress to the area
-pain control as ordered- toradol, tramadol
2. Other Management per primary Team
Vital Signs and Labs
.
Vital Signs and Labs:
Lab Results
10/23/23 15:11
10/23/23 15:11
Tmax 100.6 @1500 (10/23/23)
Temp Pulse Resp BP Pulse Ox
98.0 F 83 16 117/82 99
10/23/23 19:17 10/23/23 19:17 10/23/23 19:17 10/23/23 19:17 10/23/23 19:17
AST 101
ALT 181
[2023-10-23] MEDS: VANCOCIN 275 MG IV (20:11)
--- NOTE | 2023-10-23 20:30 | EDRN ---
Patient reported indigestion which she has a hx of and requesting a juice BENDERed hospitalist who reports she can have one, patient doens't feel the need for the Ultram at this time, aware still waiting on bed to be ready
[2023-10-23] MEDS: TUMS EX (EXTRA STRENGTH) CHEWABLE 1 TABLET PO (20:48)
[2023-10-23 22:06] VITALS: BP 137/96; BMI 28.1
[2023-10-23] MEDS: ULTRAM 50 MG PO (22:10)
[2023-10-23] MEDS: BENADRYL 25 MG PO (22:18)
--- NOTE | 2023-10-23 22:55 | PHA.VAN.IN ---
Assessment
- Assessment
Renal Function: Appears similar to baseline
Maximum Temperature: 100.6
Minimum Temperature: 98
Concomitant Antimicrobials: Ampicillin/Sulbactam
AUC Dosing Plan
- Dosing Variables
Dosing Weight (kg): 69.7kg
Dosing CrCl (ml/min): 106
Vd coefficient (L/kg): 0.7
- Empiric Dosing
Initial / Loading Dose: 1250mg 10/23/23 @2010
Maintenance Regimen: 1000mg Q12H
Estimated AUC (mcg*h/mL): 464
Estimated Peak (mcg*h/mL): 30.6
Estimated Trough (mcg/ml): 11.1
Estimated Half Life (H): 7.5
- Monitoring
No levels ordered at this time: Consider levels in next few days
Pharmacokinetics Vancomycin I
- -
Patient Age: 48
Patient Sex: Female
Vancomycin Day #: 1
Indication: Skin And Soft Tissue
Requesting Provider: Yessenia Villegas
Pertinent Antimicrobial Allergies:
Sulfa
Height / Weight:
Height 5 ft 2 in
Actual Weight 69.655 kg
Pertinent Past Medical History: Stage IV breast cancer
- Vital Signs / Lab Results
Temp Pulse Resp BP Pulse Ox
99.2 F 93 16 137/96 99
10/23/23 22:06 10/23/23 22:06 10/23/23 22:06 10/23/23 22:06 10/23/23 22:06
Lab Results - Hematology
10/23/23
15:11
WBC 6.5
Lab Results - Chemistry
10/23/23
15:11
BUN 9
Creatinine 0.6
Estimated Creat Clear 104
Albumin 4.8
10/23/23
15:11
Lactic Acid 0.9
Lab Results - Urine
10/23/23
15:11
Urine Nitrite (Reflex) Negative
Leukocyte Esterase Rfl Negative
[2023-10-23 23:00] VITALS: BP 135/65
--- NOTE | 2023-10-24 00:44 | PTCARENOTE ---
Received pt from ER at 2200. AAOx3 VSS. Pt c/o 01/17 pain to L labia/groin, medicated per SEP. Pt received with very end of Vanco infusing, however pt reporting itchiness. MANAGER PSYCHIATRY notified and PO Benadryl ordered and administered, instructed to slow rate
of next dose of Vanco down. Oriented to room, call palacio and plan of care.
[2023-10-24] MEDS: TORADOL 30 MG IV (01:53)
[2023-10-24] MEDS: UNASYN IV ×2 (05:53→12:08)
[2023-10-24] MEDS: VANCOCIN 200 IV (06:26)
[2023-10-24 07:30] VITALS: BP 111/73
[2023-10-24 07:50] LABS: % Basophils 0.8 % (0-2); % Eosinophils 1.8 % (0-6); % Immature Granulocytes 0.2 % (0-0.5); % Lymphocytes 33.3 % (20.5-51.1); % Neutrophils 51.9 % (42.2-75.2); Absolute Eosinophils 0.1 10^3/uL (0-0.7); Absolute Lymphocytes 1.7 10^3/uL (1.2-3.4); Absolute Monocytes 0.6 10^3/uL (0.1-0.6); Absolute Neutrophils 2.6 10^3/uL (1.4-6.5); Hematocrit 31.7 % (37.0-47.0); Hemoglobin 11.1 g/dL (12.0-16.0); Mean Corpuscular Hgb 32.8 pg (27.0-31.0); Mean Corpuscular Volume 93.8 fL (81.0-99.0); Mean Platelet Volume 9.4 fL (7.4-10.4); Nucleated Red Blood Cells % 0 %; Platelet Count 221 10^3/uL (130-400); Red Blood Cell Count 3.38 10^6/uL (4.20-5.40); Red Cell Dist. Width 13.1 % (11.5-14.5)
[2023-10-24] MEDS: ULTRAM 50 MG PO ×2 (07:54→14:30)
[2023-10-24 08:27] LABS: ALT (SGPT) 123 U/L (0-35); AST (SGOT) 54 U/L (14-36); Alkaline Phosphatase 83 U/L (38-126); Blood Urea Nitrogen 8 mg/dl (7-17); Calcium 8.7 mg/dl (8.4-10.2); Carbon Dioxide 27 mmol/L (22-30); Chloride 106 mmol/L (98-107); Estimated Creatinine Clearance 106 ml/min; Glucose 115 mg/dl (70-99); Potassium 3.9 mmol/L (3.5-5.1); Sodium 139 mmol/L (135-145); Total Bilirubin 0.3 mg/dl (0.2-1.3); Total Protein 6.8 g/dl (6.3-8.2); eGFR > 60.00
--- NOTE | 2023-10-24 09:31 | CON.ONC ---
Impression
Impression
Labial cellulitis, improving - management as per ID, Sales Representative Publications
Fever - await improvement in fever curve
Broken tooth without evidence of infection
s/p possible sinusitis
Hepatic transaminitis - chronic
Met breast cancer on Lupron/Femara/Verzenio
- hold Verzenio until 7 days after hospital d/c
- continue Femara
Plan
Plan
Continue to hold Verzenio
Femara 2.5 mg daily
Await improvement in fever curve on abx
Patient History
History of Present Illness
Patient is a 48-year-old woman well-known to to me from the outpatient setting for history of lobular breast cancer metastatic to mediastinal lymph nodes and bone. She started Lupron/Femara/Verzenio in April. Restaging scan in August showed
stable mediastinal adenopathy and no metabolic uptake in bone metastases. She has been tolerating Verzenio well other than manageable diarrhea. She has had essentially no cytopenias. When last seen in the office on October 05, she has been having
some low-grade fevers in the setting of sore throat and children being sick. She also reported need for dental work at that time and was seen in part for dental clearance. She had last been treated with Xgeva on August 11. Patient fever failed
to improve. She noted pain and swelling in labia, saw infectious disease, did not respond with outpatient course of oral antibiotics. Yesterday, she had trouble walking due to pain and swelling in the labial area and came to the ER. Cultures are
negative. There was no evidence of source of fever on CT abdomen pelvis or chest x-ray. There was no evidence of abscess or necrotizing fasciitis. The pain and swelling have improved overnight. Her fevers usually occur in mid afternoon so unable
to say at this point whether she has defervesced.
Past-Medical/Surgical History
PMHx: Stage IV lobular Breast CA, HTN, Migraines, depression
PSHx: LAY/BS (fibroids, HMB), C/S x2, Tubal Ligation, uterine wedge resection for cornual
POBHx: C/S x2, x1
FHx: mom- DM, HTN M. uncle- CAD
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
Meds: See Admission List
All: Codeine, Sulfa
Patient Medication
�Medication �Instructions �Recorded �Confirmed �Last Taken �Type
sertraline 100 mg tablet (Zoloft) 50 mg PO HS 04/21/23 10/23/23 10/22/23 History
Excedrin Migraine 1 tab PO DAILY PRN migraine 10/23/23 10/23/23 Unknown History
Flagyl 500 mg PO TID 10/23/23 10/23/23 10/23/23 09:00 History
Lupron Depot (3 month) 3.75 mg IM DIRECTED 10/23/23 10/23/23 Unknown History
M.V.I. 1 tab PO DAILY 10/23/23 10/23/23 10/23/23 09:00 History
abemaciclib 150 mg tablet 150 mg PO BID 10/23/23 10/23/23 10/17/23 History
(Verzenio)
acetaminophen 500 mg tablet 500 mg PO TIDPRN PRN mild 10/23/23 10/23/23 10/22/23 History
(Tylenol Extra Strength) pain/fever
amlodipine 10 mg tablet 10 mg PO DAILY 10/23/23 10/23/23 10/23/23 History
denosumab 120 mg/1.7 mL (70 mg/mL) 120 mg SC Q4W 10/23/23 10/23/23 08/11/23 09:00 History
subcutaneous solution (Xgeva)
doxycycline hyclate 100 mg tablet 100 mg PO BID 10/23/23 10/23/23 10/23/23 History
hydrochlorothiazide 12.5 mg tablet 12.5 mg PO DAILY 10/23/23 10/23/23 10/23/23 History
ibuprofen 200 mg tablet 200 mg PO BIDPRN PRN mild pain 10/23/23 10/23/23 10/22/23 History
lansoprazole 40 mg PO DAILY 10/23/23 10/23/23 Unknown History
letrozole 2.5 mg tablet 2.5 mg PO DAILY 10/23/23 10/23/23 10/23/23 History
varygfyy-ovg-xmjhn ac 400 1 tab PO DAILY 10/23/23 10/23/23 10/22/23 History
mcg-calcium carb 500 mg-vit K1 20
mcg tablet (Women's 50 Plus
Multivitamin)
zolpidem 10 mg tablet 10 mg PO HS PRN insomnia 10/23/23 10/23/23 10/22/23 History
Active Medications
Generic Name Dose Route Start Last Admin
Trade Name Freq PRN Reason Stop Dose Admin
Bisacodyl 10 mg 10/23/23 21:55
Bisacodyl 10 Mg Rectal Suppository RECTAL 11/20/23 21:54
[id number] PRN
constipation
Calcium Carbonate 1 tablet 10/23/23 20:34 10/23/23 20:48
Calcium Carbonate 750 Mg (Extra-Strength) Chewable Tablet PO 11/20/23 20:33 1 tablet
Q6HPRN PRN Administration
indigestion
Ampicillin Sodium/Sulbactam 120 mls @ 240 mls/hr 10/24/23 00:00 10/24/23 05:53
Sodium 3 gm/ Sodium Chloride IV 120 mls
Q6H HYUN Administration
Vancomycin HCl 1 gram in 200 mls @ 200 mls/hr 10/24/23 06:00 10/24/23 06:26
Vancocin IV 200 mls
Q12H HYUN Administration
Ketorolac Tromethamine 30 mg 10/23/23 21:55 10/24/23 01:53
Ketorolac 30 Mg/Ml Injection IV 10/28/23 21:54 30 mg
Q6HPRN PRN Administration
mild pain
Letrozole 2.5 mg 10/24/23 10:00
Letrozole 2.5 Mg (Non-Form) Tablet PO 11/21/23 09:59
DAILY HYUN
Oxycodone HCl 5 mg 10/23/23 21:55
Oxycodone 5 Mg Regular Release Tablet PO 11/06/23 21:54
Q4HPRN PRN
severe pain
Polyethylene Glycol 17 grams 10/23/23 21:55
Polyethylene Glycol Powder 17 Grams Packet PO 11/20/23 21:54
DAILYPRN PRN
constipation
Senna/Docusate Sodium 1 tablet 10/23/23 21:55
Docusate W/Senna (Kayce-Colace) Tablet PO 11/20/23 21:54
BIDPRN PRN
constipation
Sodium Chloride 0 flush 10/23/23 22:00
Sodium Chloride 0.9% (Flush) Syringe IV 11/20/23 21:59
PER PROTOCOL HYUN
Tramadol HCl 50 mg 10/23/23 21:55 10/24/23 07:54
Tramadol Hcl 50 Mg Tablet PO 11/20/23 21:54 50 mg
Q6HPRN PRN Administration
mod pain
Review of Systems
-
History Source: Patient, Physician and Records
Constitutional: Reports Fever and Fatigue
EENT: Reports Other (Denies jaw pain or continued sinusitis symptoms)
Respiratory: Reports No Symptoms
Cardiac: Reports No Symptoms
GI: Reports No Symptoms
: Reports No Symptoms
Musculoskeletal: Reports No Symptoms
Neuro: Reports No Symptoms
Endocrine: Reports No Symptoms
Hematologic/Lymphatic: Reports No Symptoms
Allergy / Immunology: Reports No Symptoms
Psych: Reports No Symptoms
Physical Exam
-
General: Well Developed and Well Nourished
HEENT: Moist Mucous Membranes; Negative Jaundice
Cardiology: Normal Sinus Rhythm, S1 and S2
Pulmonary: Clear; Negative Wheezes
GI: Soft and Normal Bowel Sounds
Genito-Urinary: Other (Labia with two small nodules which are soft and non-tender. Mild L labia minora swelling.)
Musculoskeletal: No Clubbing, No Cyanosis and No Edema
Extremities: Pulses Present
Neurology: Non Focal
Skin: Warm and Dry
Hematologic / Lymphatic: Negative Lymphadenopathy
Psych: Calm and Intact Judgement/Insight
Labs
Lab Results
WBC 5.0 10^3/uL (4.8-10.8) 10/24/23 07:37
RBC 3.38 10^6/uL (4.20-5.40) L 10/24/23 07:37
Hgb 11.1 g/dL (12.0-16.0) L 10/24/23 07:37
Hct 31.7 % (37.0-47.0) L 10/24/23 07:37
MCV 93.8 fL (81.0-99.0) 10/24/23 07:37
MCH 32.8 pg (27.0-31.0) H 10/24/23 07:37
MCHC 35.0 g/dL (33.0-37.0) 10/24/23 07:37
RDW 13.1 % (11.5-14.5) 10/24/23 07:37
Plt Count 221 10^3/uL (130-400) D 10/24/23 07:37
MPV 9.4 fL (7.4-10.4) 10/24/23 07:37
Abs Immat Gran (auto) 0.0 10^3/uL (0-0.05) 10/23/23 15:11
Absolute Neuts (auto) 4.2 10^3/uL (1.4-6.5) 10/23/23 15:11
Absolute Lymphs (auto) 1.6 10^3/uL (1.2-3.4) 10/23/23 15:11
Absolute Monos (auto) 0.7 10^3/uL (0.1-0.6) H 10/23/23 15:11
Absolute Eos (auto) 0.0 10^3/uL (0-0.7) 10/23/23 15:11
Absolute Basos (auto) 0.1 10^3/uL (0-0.2) 10/23/23 15:11
Immature Gran % 0.3 % (0-0.5) 10/23/23 15:11
Neutrophils % 63.9 % (42.2-75.2) 10/23/23 15:11
Lymphocytes % 24.1 % (20.5-51.1) 10/23/23 15:11
Monocytes % 10.3 % (1.7-9.3) H 10/23/23 15:11
Eosinophils % 0.6 % (0-6) 10/23/23 15:11
Basophils % 0.8 % (0-2) 10/23/23 15:11
Creatinine 0.6 mg/dL (0.6-1.0) 10/24/23 07:37
All cultures NGTD
CXR clear
Abd/pelvis - no cancer, no signs of infection
Vital Signs
Vital Signs
Temp Pulse Resp BP Pulse Ox
97.9 F 75 18 111/73 98
10/24/23 07:30 10/24/23 07:30 10/24/23 07:30 10/24/23 07:30 10/24/23 07:30
--- NOTE | 2023-10-24 09:45 | PTOTSP ---
Reviewed chart and spoke to nursing. Pt is independent in ADLs and functional mobility/transfers in room. No skilled OT services warranted. Will sign off at this time. RN aware/in agreement.
[2023-10-24] MEDS: FEMARA 2.5 MG PO (09:47)
--- NOTE | 2023-10-24 10:13 | PHA.VAN.FU ---
Vancomycin Assessment / Plan
- Assessment
Renal Function: Stable
WBC's are: WNL
Concomitant Antimicrobials: ampicillin/sulbactam
- Dosing Plan
Continue: Vanc 1000mg Q12H
- Monitoring Plan
No level(s) ordered at this time: consider levels in next few days
- Follow Up
Pharmacy will continue to follow.
Vancomycin Follow UP
- -
Patient Age: 48
Patient Sex: Female
Vancomycin Day #: 2
Indication: Skin And Soft Tissue
Requesting Provider: Yessenia Villegas
Pertinent Antimicrobial Allergies:
sulfonamide antibiotics - rash
Height / Weight:
Height 5 ft 2 in
Actual Weight 69.655 kg
Pertinent Past Medical History: Stage IV breast cancer
- Vital Signs / Lab Results
Temp Pulse Resp BP Pulse Ox
97.9 F 75 18 111/73 98
10/24/23 07:30 10/24/23 07:30 10/24/23 07:30 10/24/23 07:30 10/24/23 07:30
Lab Results - Hematology
10/23/23 10/24/23
15:11 07:37
WBC 6.5 5.0
Lab Results - Chemistry
10/23/23 10/24/23
15:11 07:37
BUN 9 8
Creatinine 0.6 0.6
Estimated Creat Clear 104 106
Albumin 4.8 4.0
10/23/23
15:11
Lactic Acid 0.9
Lab Results - Urine
10/23/23
15:11
Urine Nitrite (Reflex) Negative
Leukocyte Esterase Rfl Negative
--- NOTE | 2023-10-24 11:10 | CON.ID ---
Consultation
-
Date/Time Consultation Requested: October 23, 20231
Date/Time Consultation Performed: October 24, 2023 1111
Requesting Provider: Dr. Pierce Charles
Performing Provider: Dr. Hemalatha Rueda
Reason for Consultation: Fever, labial cellulitis
Chief Complaint / Past History
Chief Complaint
vaginal labial redness
History of Present Illness
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 She had sinus congestion and was
treated with 8 days of Augmentin for sinusitis. The fever resolved. However 2 days after finishing the Augmentin, the fever recurred. She was seen at the infectious disease office with Dr. Franklin on Tuesday10/21/23. Patient was complaining of
sore throat at the time. She was prescribed fluconazole for possible Alesha esophagitis, for which the patient did not fill the prescription. Patient also noted left vaginal labial small lesion. She was prescribed doxycycline and metronidazole
for suspected folliculitis. However while on the antibiotics, the lesion continued to expand and the labia became very edematous and erythematous. She came to the hospital yesterday and admitted. Temperature was 100.6. She is currently on
vancomycin and Unasyn. She reports the labia has significantly improved. She was seen by FORM BUILDING SUPERVISOR with improving cellulitis, no abscess noted. Her at bedside also states pt is much improved. Her throat pain also improving. CT a/p no acute
pathology. Her family - children and parents (from [place]) with URI symptoms. No recent travel.
Past History
Additional Past Medical History:
Breast CA (dx 04/2023) with bone mets
HTN
migraines
GERD
Uterine fibroids/hysterectomy bilateral salpingo-oophorectomy required ureteral stent during surgery had postop ESBL-Ecoli urosepsis
Allergy History:
codeine Allergy (Verified 10/23/23 12:59)
Nausea / Vomiting
Sulfa (Sulfonamide Antibiotics) Allergy (Verified 10/23/23 12:59)
Rash
Medications Reviewed: Yes
Current Antibiotics:
Unasyn
Vancomycin
Social History
Tobacco: Non-Smoker
Alcohol: None
Drug: None
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
Family History
Family History: Not Pertinent
Review of Systems
Review of Systems
General: Fever; Negative Chills or Change in Appetite
HEENT: Negative Headache
Cardiovascular: Negative Chest Pain or Edema
Respiratory: Negative Dyspnea or Cough
Gasteroenterology: Other (no diarrhea); Negative Nausea or Vomiting
Genital / Urological: Negative Dysuria or Flank Pain
Endocrine: Negative Weakness
Skin / Hair / Nails: Negative Rash
Neurological: Negative Headache or Dizziness
All systems: All other systems were reviewed and were negative
Vital Signs
Temp Pulse Resp BP Pulse Ox
97.9 F 75 18 111/73 98
10/24/23 07:30 10/24/23 07:30 10/24/23 07:30 10/24/23 07:30 10/24/23 07:30
Physical Exam
Physical Exam
Constitutional: No Acute Distress and Comfortable
Eyes: No Conjunctival Hemorrhage and Sclera Anicteric
Pharynx: Benign; Negative Erythema
Oral: No Thrush
Cardiovascular: Regular Rate and S1/S2
Pulmonary: Clear
Gastrointestinal: Soft, Non Tender, Non Distended and Normal Bowel Sounds
Genito-Urinary: Negative CVA Tenderness
Extremities: Negative Edema
Musculoskeletal: Negative Spinal Tenderness
Skin: Negative Jaundice
Neurological: AO x 3
Pelvic/ exam deferred per patient, was examined by FORM BUILDING SUPERVISOR today.
Lab / Diagnostic Study Results
10/24/23 07:37
04/15/24 07:37
Abs Immat Gran (auto) 0.0 10^3/uL (0-0.05) 10/24/23 07:37
Absolute Neuts (auto) 2.6 10^3/uL (1.4-6.5) 10/24/23 07:37
Absolute Lymphs (auto) 1.7 10^3/uL (1.2-3.4) 10/24/23 07:37
Absolute Monos (auto) 0.6 10^3/uL (0.1-0.6) 10/24/23 07:37
Absolute Basos (auto) 0.0 10^3/uL (0-0.2) 10/24/23 07:37
Immature Gran % 0.2 % (0-0.5) 10/24/23 07:37
Neutrophils % 51.9 % (42.2-75.2) 10/24/23 07:37
Lymphocytes % 33.3 % (20.5-51.1) 10/24/23 07:37
Monocytes % 12.0 % (1.7-9.3) H 10/24/23 07:37
Eosinophils % 1.8 % (0-6) 10/24/23 07:37
Basophils % 0.8 % (0-2) 10/24/23 07:37
Lactic Acid 0.9 mmol/L (0.7-2.0) 10/23/23 15:11
Microbiology Results
Micro:
10/23/23 22:42 MRSA Screen - Pending
Nose
10/23/23 18:20 Blood Culture - Pending
Blood/Venous
10/23/23 15:11 Blood Culture - Pending
Blood/Venous
10/23/23 CT a/p: No significant acute abnormality identified in the abdomen or pelvis, as described above. No overt inflammatory change or fluid collections within the pelvis/perineum. Scattered small osteoblastic lesions throughout the visualized
bones, similar to prior.
10/23/23 CXR: No acute cardiopulmonary process.
Assessment / Plan
# Left vaginal labial cellulitis improving
# Low grade fever - resolving.
- did not respond to outpatient doxycycline
- currently responding to Jamie Barronn
- recommend cefuroxime 500mg po bid x 7days
- she and her prefer MRSA coverage. She doubts sulfa allergy. She tolerated Bactrim in the past except for one time in [place] when she developed rash.
Can give one dose of Bactrim DS 1 tab now and observe. If no reaction, can add Bactrim DS 1 tab bid x 7 days to the cefuroxime 500mg po bid x 7 days.
# Stage IV breast CA on hormone therapy.
Care Review
Plan reviewed with: Physician (Dr. Goran Charles)
[2023-10-24] MEDS: BACTRIM DS 800 MG/160 MG 1 TABLET PO (12:08)
[2023-10-24 15:30] VITALS: BP 116/73
--- NOTE | 2023-10-24 16:17 | CM ---
Patient seen bedside with spouse in room.
Patient independent prior to admission.
Patient lives in a 2 story home.
Ambulates without assistive devices.
Patient had [facility] in the past, denies home care needs at this time.
PCP: Dr Cordero
Pharmacy: [facility]
Plan: home no needs.
--- NOTE | 2023-10-24 17:31 | W.PN.HOSP.TC ---
Today's Communication/Plan
-
d/c home
Assessment / Plan
Assessment / Plan
#Left labial cellulitis
-On doxycycline 100 mg twice daily x 3 days and Flagyl 500 mg 3 times daily x 2 days per ID
-CT pelvis negative for any acute issues and no abscess.
-was provided IV vancomycin and unasyn
-ID evaluated and recommended transition to doxycycline and Bactrim
-Nurse Advisor evaluated and no indication for I&D as no drainable collection.
#Hypokalemia
-replaced
# Fever episode
-blood culture collected in ER, pending final report at discharge
-fdc without any other acute issues, suspecting malignancy fever
-patient to f/u with ID Dr tlobert post discharge.
#Acute on chronic transaminitis
-ALT down to 123 and AST 54
-no abd complain of pain/nausea/vomiting
#Stage IV breast cancer ER positive Dx April 2023
-On current hormone therapy Lupron every 3 months last dose September 2023, letrozole 2.5 mg daily
-Follows with [facility]
-Xgeva and verzenio (abemaciclib)currently on hold past 2 to 3 months due to upcoming dental procedure
#Essential HTN
Continue amlodipine 5 mg daily, HCTZ 12.5 mg daily
#Migraine history-no current headache
-Takes as needed Excedrin
#GERD
-Takes episodic lansoprazole
#Hx uterine fibroids/hysterectomy bilateral salpingo-oophorectomy required Hx ureteral stent during surgery had postop sepsis
#Iron deficiency anemia
Hgb 12�stable
#Depression
Zoloft 50 mg daily-
DVT prophylaxis
SCDs
More than 30 minutes spent in discharge including
Final examination of the patient
Summarizing hospital stay
Instructions for continuing care to all relevant caregivers
Preparation of discharge records, prescriptions, and referral forms
Total time spent (in minutes): 33 mins
Anticipated Discharge: Today
Subjective/Interval History
-
Date of Service: October 24, 2023
Labial pain/discomfort better
Afebrile and night
No other acute issues reported
Objective Data
-
Labs:
Laboratory Results
10/24/23
07:37
WBC 5.0
Hgb 11.1 L
Hct 31.7 L
Plt Count 221 D
Sodium 139
Potassium 3.9
Chloride 106
Carbon Dioxide 27
BUN 8
Creatinine 0.6
Glucose 115 H
Calcium 8.7
Total Bilirubin 0.3
AST 54 H
ALT 123 H
Alkaline Phosphatase 83
Vital Signs:
Vital Signs
Temp Pulse Resp BP Pulse Ox
98.8 F 86 17 116/73 96
10/24/23 15:30 10/24/23 15:30 10/24/23 15:30 10/24/23 15:30 10/24/23 15:30
I&O
10/23/23 10/24/23 10/25/23
06:59 06:59 06:59
Intake Total 560 / 560
Balance 560 / 560
Review of Systems
-
Respiratory: Reports No Symptoms
Cardiac: Reports No Symptoms
Abdomen/GI: Reports No Symptoms
Physical Exam
-
General: No Apparent Distress and Comfortable
HEENT: Negative Oxygen
Genito-urinary: Other (No labial swelling/erythema on exam)
Neuro: Awake, Alert, Oriented and No Motor Deficits
Psych: Calm
--- NOTE | 2023-10-24 19:57 | W.PN.OBG.DWH ---
Today's Communication / Plan
-
dc home as per primary service.
Assessment/Plan
-
Vulvar cellulitis-improving on abx
agree with dc on abx.
Close follow up in office within 1 wk.
Advised to call if any increase in swelling, induration, erythema or pain, fever or chills.
Subjective Data
-
Came to evaluate Atika before discharge today.
I am covering L&D today and was detained by multiple deliveries.
She reports being discharged.
Feeling improvement since admission. Less swelling, +tenderness left vulva, Reports feeling small lump right vulva today, tender.
Objective Data
-
Laboratory Results
10/24/23 07:37
10/24/23 07:37
Vital Signs
Temp Pulse Resp BP Pulse Ox
98.8 F 86 17 116/73 96
10/24/23 15:30 10/24/23 15:30 10/24/23 15:30 10/24/23 15:30 10/24/23 15:30
No inguinal adenopathy
Left vulva/right vulva without erythema. Indurated area noted along left labia majora. No drainage, no abscess. Mildly tender to palpation
Right vulva/labia majora with small approx 1 cm palpable mass-likely cyst. Mild tenderness. No drainage. No induration or fluctuation.
--- NOTE | 2023-10-26 08:04 | W.DCSUMMARY ---
Discharge Summary
Discharge Data
Date of Admission: 10/23/23
Date of Discharge: 10/24/23
-
Pending Results: No
Hospital Course
Discharging Physician : Dr Pierce Charles
Disposition : Home
Primary care physician : Dr Janneth Ontiveros
Principal Discharge diagnosis :
Left labial cellulitis
Episodic fever of unclear origin
Chronic Discharge diagnosis :
History of breast cancer with bone metastasis on hormonal therapy
Essential hypertension
Migraine
Gastroesophageal reflux disease
Hospital Course :
Patient is a 48-year-old female with above-mentioned past medical history came to ER with having new onset of pain and discomfort in vaginal area. Patient has been diagnosed for breast cancer later part of last year and has been on antihormonal
therapy. Patient initially noted some mild folliculitis on left labial skin and patient was prescribed doxycycline and metronidazole. Despite taking oral antibiotic patient noticed worsening swelling/erythema and pain in the area. Patient came to
ER for further evaluation of this. Laboratory evaluation and vital check ruled out any systemic sepsis. As patient was having episodic fever for few weeks now a blood culture was collected. Patient was started on vancomycin and Unasyn and
gynecology was consulted. A CT of pelvis did not show any drainable collection. Gynecology on bedside evaluated the same, noticing no clear drainable abscess on exam. Patient was monitored in hospital overnight and had rapid improvement in
symptoms. Infectious disease evaluated patient as well and recommended to be discharged on 1 week course of oral antibiotics.
Important imaging findings :
None
Procedure findings :
None
Discharge Plan
-
Patient Disposition: Home (Routine Discharge)
Discharge Diagnosis/Procedures: Labial cellulitis, Episodic fever of unknown origin
Condition: Fair
Diet: Regular
Activity: As tolerated
Driving Restrictions: No driving
Bathing Restrictions: OK to Shower
Referrals:
Hailee Novoa MD [Family Provider] - in one week
Renetta Franklin MD [Active] -
Prescriptions:
New
sulfamethoxazole-trimethoprim [Bactrim DS] 800-160 mg tablet
1 tab PO BID 7 Days Qty: 14 0RF
cephalexin 500 mg capsule
500 mg feeding tube BID 7 Days Qty: 14 0RF
tramadol 50 mg tablet
50 mg PO Q8H PRN (Reason: mod sev pain) Qty: 10 0RF
Continued
sertraline [Zoloft] 100 mg Tablet
50 mg PO HS
Xgeva 120 mg/1.7 mL (70 mg/mL) Solution
120 mg SC Q4W
Patient Comments:
stopped approx 3 months ago
Excedrin Migraine
1 tab PO DAILY PRN (Reason: migraine)
Flagyl
500 mg PO TID
Rx Instructions:
Has taken the last 2 days
Lupron Depot (3 month)
3.75 mg IM DIRECTED
Rx Instructions:
pt takes q3 months last injection end of september 2023
M.V.I.
1 tab PO DAILY
lansoprazole
40 mg PO DAILY
Rx Instructions:
Took for 2 weeks unsure last dose
acetaminophen [Tylenol Extra Strength] 500 mg Tablet
500 mg PO TIDPRN PRN (Reason: mild pain/fever)
amlodipine 10 mg Tablet
10 mg PO DAILY
ibuprofen 200 mg Tablet
200 mg PO BIDPRN PRN (Reason: mild pain)
letrozole 2.5 mg Tablet
2.5 mg PO DAILY
zolpidem 10 mg Tablet
10 mg PO HS PRN (Reason: insomnia)
hydrochlorothiazide 12.5 mg Tablet
12.5 mg PO DAILY
Women's 50 Plus Multivitamin 400 mcg-500 mg calcium-20 mcg Tablet
1 tab PO DAILY
Verzenio 150 mg Tablet
150 mg PO BID
Patient Comments:
10/23/2023, PCP placed on hold because pt. had fever per pt.
Discontinued
doxycycline hyclate 100 mg Tablet
100 mg PO BID
Patient Comments:
10/23/2023, pt. filled this med. on 10/21/2023 and is instructed to take one tablet BID for 5 days per pt.
Discharge Orders:
Discharge Patient (As Directed); Ordered 10/24/23
Ordered By: Pierce Charles
Discharge Date and Time
Discharge Date/Time: 10/24/23 20:08
Print Language: KOREAN
== END 2023-10-24 20:08 | disposition home or self-care (01) | DRG 758 ==
LOC: 4 WEST ACU 19:26
PROVIDERS: Clinical Nurse Specialist Family Health; Physician Assistant; ADMITTING PHYSICIAN Internal Medicine; ATTENDING PHYSICIAN Hospitalist; CONSULT PHYSICIAN Obstetrics & Gynecology; CONSULT PHYSICIAN Student in an Organized Health Care Education/Training Program; EMERGENCY PHYSICIAN Student in an Organized Health Care Education/Training Program; OTHER PHYSICIAN Internal Medicine Hematology & Oncology
DX: N76.2 Acute vulvitis (principal); C79.51 Secondary malignant neoplasm of bone; I10 Essential (primary) hypertension; G43.909 Migraine, unspecified, not intractable, without status migrainosus; K21.9 Gastro-esophageal reflux disease without esophagitis; R50.9 Fever, unspecified; D50.9 Iron deficiency anemia, unspecified; F32.A Depression, unspecified; Z85.3 Personal history of malignant neoplasm of breast
CPT/HCPCS: 71046; 74177; 80053; 81003; 83605; 85025; 87040; 87070; 96361; 96374; 99285; Q9967

== ENCOUNTER → 2024-01-06 10:03 | Outpatient (REF) | payer BC, SELFPAY | LOC: PET 10:03 | PROVIDERS: ATTENDING PHYSICIAN Internal Medicine Hematology & Oncology | DX: C50.412 Malignant neoplasm of upper-outer quadrant of left female breast (principal) | CPT/HCPCS: 78815; A9552 ==

== ENCOUNTER 2024-01-06 14:50 | Outpatient (RCR) | payer BC, SELFPAY ==
[2024-01-04 10:20] LABS: % Basophils 0.6 % (0-2); % Eosinophils 1.7 % (0-6); % Immature Granulocytes 0.2 % (0-0.5); % Lymphocytes 25.3 % (20.5-51.1); % Monocytes 6.1 % (1.7-9.3); % Neutrophils 66.1 % (42.2-75.2); Absolute Eosinophils 0.1 10^3/uL (0-0.7); Absolute Lymphocytes 1.2 10^3/uL (1.2-3.4); Absolute Monocytes 0.3 10^3/uL (0.1-0.6); Absolute Neutrophils 3.2 10^3/uL (1.4-6.5); Hematocrit 34.7 % (37.0-47.0); Hemoglobin 12.1 g/dL (12.0-16.0); Mean Corp Hgb Conc. 34.9 g/dL (33.0-37.0); Mean Corpuscular Hgb 32.3 pg (27.0-31.0); Mean Corpuscular Volume 92.5 fL (81.0-99.0); Mean Platelet Volume 9.4 fL (7.4-10.4); Platelet Count 184 10^3/uL (130-400); Red Blood Cell Count 3.75 10^6/uL (4.20-5.40); Red Cell Dist. Width 12.9 % (11.5-14.5); White Blood Cell Count 4.8 10^3/uL (4.8-10.8)
[2024-01-04 11:06] LABS: ALT (SGPT) 48 U/L (0-35); AST (SGOT) 37 U/L (14-36); Albumin 4.6 g/dl (3.5-5.0); Alkaline Phosphatase 61 U/L (38-126); Blood Urea Nitrogen 11 mg/dl (7-17); Calcium 9.4 mg/dl (8.4-10.2); Carbon Dioxide 29 mmol/L (22-30); Chloride 104 mmol/L (98-107); Glucose 92 mg/dl (70-99); HDL Cholesterol 80 mg/dl; LDL Cholesterol, Calculated 111 mg/dl; Potassium 3.6 mmol/L (3.5-5.1); Sodium 142 mmol/L (135-145); Total Bilirubin 0.6 mg/dl (0.2-1.3); Total Cholesterol 210 mg/dl (50-199); Total Protein 7.7 g/dl (6.3-8.2); Triglyceride 97 mg/dl (10-149); Very Low Density Lipoprotein 19 mg/dl (0-30); eGFR > 60.00
[2024-01-06 15:12] VITALS: BP 113/72
[2024-01-06] MEDS: ELIGARD 7.5 MG SC (15:15)
== END 2024-01-08 23:59 | disposition home or self-care (01) ==
LOC: OID 14:50
PROVIDERS: ATTENDING PHYSICIAN Internal Medicine Hematology & Oncology; FAMILY PHYSICIAN Nurse Practitioner
DX: C79.51 Secondary malignant neoplasm of bone (principal); C50.412 Malignant neoplasm of upper-outer quadrant of left female breast; R74.01 Elevation of levels of liver transaminase levels
CPT/HCPCS: 36415; 80053; 80061; 85025; 86300; 96402; J9217

== ENCOUNTER → 2024-02-02 15:43 | Outpatient (REF) | payer BC, SELFPAY ==
[2024-02-02 16:31] LABS: % Basophils 1.2 % (0-2); % Eosinophils 2.5 % (0-6); % Immature Granulocytes 0.5 % (0-0.5); % Lymphocytes 44.3 % (20.5-51.1); % Monocytes 8.1 % (1.7-9.3); % Neutrophils 43.4 % (42.2-75.2); Absolute Basophils 0.1 10^3/uL (0-0.2); Absolute Eosinophils 0.1 10^3/uL (0-0.7); Absolute Lymphocytes 1.8 10^3/uL (1.2-3.4); Absolute Monocytes 0.3 10^3/uL (0.1-0.6); Absolute Neutrophils 1.8 10^3/uL (1.4-6.5); Hemoglobin 11.8 g/dL (12.0-16.0); Mean Corp Hgb Conc. 35.8 g/dL (33.0-37.0); Mean Corpuscular Hgb 31.6 pg (27.0-31.0); Mean Corpuscular Volume 88.5 fL (81.0-99.0); Mean Platelet Volume 10.5 fL (7.4-10.4); Nucleated Red Blood Cells % 0 %; Platelet Count 186 10^3/uL (130-400); Red Blood Cell Count 3.73 10^6/uL (4.20-5.40); Red Cell Dist. Width 12.6 % (11.5-14.5); White Blood Cell Count 4.1 10^3/uL (4.8-10.8)
[2024-02-02 16:48] LABS: ALT (SGPT) 52 U/L (0-35); AST (SGOT) 58 U/L (14-36); Albumin 4.6 g/dl (3.5-5.0); Alkaline Phosphatase 64 U/L (38-126); Blood Urea Nitrogen 13 mg/dl (7-17); Calcium 9.7 mg/dl (8.4-10.2); Carbon Dioxide 31 mmol/L (22-30); Chloride 104 mmol/L (98-107); Glucose 115 mg/dl (70-99); Potassium 3.6 mmol/L (3.5-5.1); Sodium 142 mmol/L (135-145); Total Bilirubin 0.2 mg/dl (0.2-1.3); Total Protein 7.3 g/dl (6.3-8.2); eGFR > 60.00
== END ==
LOC: RAD 15:43
PROVIDERS: ATTENDING PHYSICIAN Student in an Organized Health Care Education/Training Program; FAMILY PHYSICIAN Nurse Practitioner; REFERRING PHYSICIAN Internal Medicine Hematology & Oncology
DX: Z20.1 Contact with and (suspected) exposure to tuberculosis (principal); R93.7 Abnormal findings on diagnostic imaging of other parts of musculoskeletal system; C79.51 Secondary malignant neoplasm of bone; C50.412 Malignant neoplasm of upper-outer quadrant of left female breast; R74.01 Elevation of levels of liver transaminase levels
CPT/HCPCS: 36415; 71250; 80053; 85025

== ENCOUNTER → 2024-02-03 11:34 | Outpatient (REF) | payer BC, SELFPAY | LOC: REG 11:34 | PROVIDERS: ATTENDING PHYSICIAN Student in an Organized Health Care Education/Training Program; FAMILY PHYSICIAN Nurse Practitioner | DX: Z20.1 Contact with and (suspected) exposure to tuberculosis (principal) | CPT/HCPCS: 36415; 86480 ==

== ENCOUNTER 2024-02-03 16:07 | Outpatient (RCR) | payer BC, SELFPAY ==
[2024-02-03] MEDS: ELIGARD 7.5 MG SC (16:37)
[2024-02-03 16:44] VITALS: BP 153/90
== END 2024-02-06 08:44 | disposition home or self-care (01) ==
LOC: OID 16:07
PROVIDERS: ATTENDING PHYSICIAN Internal Medicine Hematology & Oncology; FAMILY PHYSICIAN Nurse Practitioner; PRIMARYCARE PHYSICIAN Internal Medicine
DX: Z51.11 Encounter for antineoplastic chemotherapy (principal); C79.51 Secondary malignant neoplasm of bone; C50.412 Malignant neoplasm of upper-outer quadrant of left female breast; R74.01 Elevation of levels of liver transaminase levels; Z17.0 Estrogen receptor positive status [ER+]
CPT/HCPCS: 96402; J9217

== ENCOUNTER → 2024-02-10 22:00 | Outpatient (REF) | payer BC, SELFPAY | LOC: DHSLP 22:00 | PROVIDERS: ATTENDING PHYSICIAN Internal Medicine Critical Care Medicine; FAMILY PHYSICIAN Internal Medicine | DX: G47.33 Obstructive sleep apnea (adult) (pediatric) (principal) | CPT/HCPCS: 95800 ==

== ENCOUNTER 2024-03-02 14:21 | Outpatient (RCR) | payer BC, SELFPAY ==
[2024-03-01 13:45] LABS: % Basophils 0.7 % (0-2); % Eosinophils 2.2 % (0-6); % Immature Granulocytes 0.2 % (0-0.5); % Lymphocytes 40.3 % (20.5-51.1); % Monocytes 7.3 % (1.7-9.3); % Neutrophils 49.3 % (42.2-75.2); Absolute Eosinophils 0.1 10^3/uL (0-0.7); Absolute Lymphocytes 2.2 10^3/uL (1.2-3.4); Absolute Monocytes 0.4 10^3/uL (0.1-0.6); Absolute Neutrophils 2.7 10^3/uL (1.4-6.5); Hemoglobin 13.1 g/dL (12.0-16.0); Mean Corp Hgb Conc. 34.5 g/dL (33.0-37.0); Mean Corpuscular Hgb 32.2 pg (27.0-31.0); Mean Corpuscular Volume 93.4 fL (81.0-99.0); Mean Platelet Volume 9.5 fL (7.4-10.4); Platelet Count 239 10^3/uL (130-400); Red Blood Cell Count 4.07 10^6/uL (4.20-5.40); White Blood Cell Count 5.5 10^3/uL (4.8-10.8)
[2024-03-01 16:12] LABS: ALT (SGPT) 45 U/L (0-35); AST (SGOT) 38 U/L (14-36); Albumin 5.1 g/dl (3.5-5.0); Alkaline Phosphatase 71 U/L (38-126); Blood Urea Nitrogen 12 mg/dl (7-17); Calcium 10.6 mg/dl (8.4-10.2); Carbon Dioxide 30 mmol/L (22-30); Chloride 101 mmol/L (98-107); Glucose 113 mg/dl (70-99); Potassium 3.7 mmol/L (3.5-5.1); Sodium 144 mmol/L (135-145); Total Bilirubin 0.5 mg/dl (0.2-1.3); eGFR > 60.00
[2024-03-02 14:29] VITALS: BP 135/76
[2024-03-02] MEDS: ELIGARD 7.5 MG SC (14:39)
== END 2024-03-05 08:05 | disposition home or self-care (01) ==
LOC: OID 14:21
PROVIDERS: ATTENDING PHYSICIAN Internal Medicine Hematology & Oncology; FAMILY PHYSICIAN Nurse Practitioner; PRIMARYCARE PHYSICIAN Internal Medicine
DX: C79.51 Secondary malignant neoplasm of bone (principal); C50.412 Malignant neoplasm of upper-outer quadrant of left female breast; R74.01 Elevation of levels of liver transaminase levels; R93.7 Abnormal findings on diagnostic imaging of other parts of musculoskeletal system
CPT/HCPCS: 36415; 80053; 85025; 96402; J9217

== ENCOUNTER 2024-03-30 15:25 | Outpatient (RCR) | payer BC, SELFPAY ==
[2024-03-29 15:20] LABS: % Basophils 0.8 % (0-2); % Eosinophils 3.5 % (0-6); % Lymphocytes 36.9 % (20.5-51.1); % Monocytes 8.9 % (1.7-9.3); % Neutrophils 49.9 % (42.2-75.2); Absolute Eosinophils 0.2 10^3/uL (0-0.7); Absolute Lymphocytes 1.9 10^3/uL (1.2-3.4); Absolute Monocytes 0.5 10^3/uL (0.1-0.6); Absolute Neutrophils 2.6 10^3/uL (1.4-6.5); Hematocrit 38.4 % (37.0-47.0); Hemoglobin 13.2 g/dL (12.0-16.0); Mean Corp Hgb Conc. 34.4 g/dL (33.0-37.0); Mean Corpuscular Hgb 31.6 pg (27.0-31.0); Mean Corpuscular Volume 91.9 fL (81.0-99.0); Mean Platelet Volume 9.9 fL (7.4-10.4); Platelet Count 218 10^3/uL (130-400); Red Blood Cell Count 4.18 10^6/uL (4.20-5.40); Red Cell Dist. Width 12.9 % (11.5-14.5); White Blood Cell Count 5.2 10^3/uL (4.8-10.8)
[2024-03-29 16:07] LABS: ALT (SGPT) 43 U/L (0-35); AST (SGOT) 34 U/L (14-36); Albumin 5.1 g/dl (3.5-5.0); Alkaline Phosphatase 74 U/L (38-126); Blood Urea Nitrogen 12 mg/dl (7-17); Carbon Dioxide 24 mmol/L (22-30); Chloride 105 mmol/L (98-107); Glucose 102 mg/dl (70-99); Potassium 4.3 mmol/L (3.5-5.1); Sodium 146 mmol/L (135-145); Total Bilirubin 0.4 mg/dl (0.2-1.3); Total Protein 8.2 g/dl (6.3-8.2); eGFR > 60.00
[2024-03-30 15:30] VITALS: BP 139/86
[2024-03-30] MEDS: ELIGARD 7.5 MG SC (15:36)
== END 2024-04-09 23:59 | disposition home or self-care (01) ==
LOC: OID 15:25
PROVIDERS: ATTENDING PHYSICIAN Internal Medicine Hematology & Oncology; FAMILY PHYSICIAN Nurse Practitioner; PRIMARYCARE PHYSICIAN Internal Medicine
DX: Z51.11 Encounter for antineoplastic chemotherapy (principal); C79.51 Secondary malignant neoplasm of bone (principal); C50.412 Malignant neoplasm of upper-outer quadrant of left female breast; R74.01 Elevation of levels of liver transaminase levels; Z17.0 Estrogen receptor positive status [ER+]
CPT/HCPCS: 36415; 80053; 85025; 96402; J9217

== ENCOUNTER 2024-04-27 14:38 | Outpatient (RCR) | payer BC, SELFPAY ==
[2024-04-26 15:02] LABS: % Basophils 0.7 % (0-2); % Eosinophils 3.1 % (0-6); % Lymphocytes 42.1 % (20.5-51.1); % Monocytes 9.6 % (1.7-9.3); % Neutrophils 44.5 % (42.2-75.2); Absolute Eosinophils 0.1 10^3/uL (0-0.7); Absolute Lymphocytes 1.8 10^3/uL (1.2-3.4); Absolute Monocytes 0.4 10^3/uL (0.1-0.6); Absolute Neutrophils 1.9 10^3/uL (1.4-6.5); Hematocrit 39.3 % (37.0-47.0); Hemoglobin 13.5 g/dL (12.0-16.0); Mean Corp Hgb Conc. 34.4 g/dL (33.0-37.0); Mean Corpuscular Hgb 31.4 pg (27.0-31.0); Mean Corpuscular Volume 91.4 fL (81.0-99.0); Mean Platelet Volume 9.5 fL (7.4-10.4); Platelet Count 228 10^3/uL (130-400); Red Cell Dist. Width 12.6 % (11.5-14.5); White Blood Cell Count 4.2 10^3/uL (4.8-10.8)
[2024-04-26 16:30] LABS: ALT (SGPT) 55 U/L (0-35); AST (SGOT) 49 U/L (14-36); Alkaline Phosphatase 74 U/L (38-126); Blood Urea Nitrogen 14 mg/dl (7-17); Calcium 9.9 mg/dl (8.4-10.2); Carbon Dioxide 29 mmol/L (22-30); Chloride 102 mmol/L (98-107); Glucose 104 mg/dl (70-99); Potassium 4.1 mmol/L (3.5-5.1); Sodium 144 mmol/L (135-145); Total Bilirubin 0.5 mg/dl (0.2-1.3); Total Protein 8.1 g/dl (6.3-8.2); eGFR > 60.00
[2024-04-27 14:44] VITALS: BP 145/82
[2024-04-27] MEDS: ELIGARD 7.5 MG SC (14:56)
[2024-04-29 04:40] LABS: CA 27-29 27.3 U/mL (<=39.0)
== END 2024-05-10 23:59 | disposition home or self-care (01) ==
LOC: OID 14:38
PROVIDERS: ATTENDING PHYSICIAN Internal Medicine Hematology & Oncology; FAMILY PHYSICIAN Nurse Practitioner; PRIMARYCARE PHYSICIAN Internal Medicine
DX: C50.412 Malignant neoplasm of upper-outer quadrant of left female breast (principal); C79.51 Secondary malignant neoplasm of bone; R74.01 Elevation of levels of liver transaminase levels; Z17.0 Estrogen receptor positive status [ER+]; Z51.11 Encounter for antineoplastic chemotherapy
CPT/HCPCS: 36415; 80053; 85025; 86300; 96402; J9217

== ENCOUNTER 2024-05-25 11:48 | Outpatient (RCR) | payer BC, SELFPAY ==
[2024-05-24 12:45] LABS: Blood Urea Nitrogen 12 mg/dl (7-17); Carbon Dioxide 32 mmol/L (22-30); Chloride 102 mmol/L (98-107); Glucose 95 mg/dl (70-99); Potassium 3.9 mmol/L (3.5-5.1); Sodium 145 mmol/L (135-145); eGFR > 60.00
[2024-05-24 12:48] LABS: % Basophils 0.7 % (0-2); % Eosinophils 2.9 % (0-6); % Lymphocytes 38.2 % (20.5-51.1); % Neutrophils 50.2 % (42.2-75.2); Absolute Eosinophils 0.1 10^3/uL (0-0.7); Absolute Lymphocytes 1.6 10^3/uL (1.2-3.4); Absolute Monocytes 0.3 10^3/uL (0.1-0.6); Absolute Neutrophils 2.1 10^3/uL (1.4-6.5); Hematocrit 36.1 % (37.0-47.0); Hemoglobin 12.4 g/dL (12.0-16.0); Mean Corp Hgb Conc. 34.3 g/dL (33.0-37.0); Mean Corpuscular Hgb 31.1 pg (27.0-31.0); Mean Corpuscular Volume 90.5 fL (81.0-99.0); Mean Platelet Volume 9.9 fL (7.4-10.4); Platelet Count 219 10^3/uL (130-400); Red Blood Cell Count 3.99 10^6/uL (4.20-5.40); Red Cell Dist. Width 12.2 % (11.5-14.5); White Blood Cell Count 4.1 10^3/uL (4.8-10.8)
[2024-05-25 11:50] VITALS: BP 135/92
[2024-05-25] MEDS: XGEVA 120 MG SC (12:09)
[2024-05-25] MEDS: ELIGARD 7.5 MG SC (12:09)
== END 2024-05-28 09:10 | disposition home or self-care (01) ==
LOC: OID 11:48
PROVIDERS: ATTENDING PHYSICIAN Internal Medicine Hematology & Oncology; FAMILY PHYSICIAN Nurse Practitioner; PRIMARYCARE PHYSICIAN Internal Medicine
DX: Z51.11 Encounter for antineoplastic chemotherapy (principal); C50.412 Malignant neoplasm of upper-outer quadrant of left female breast; C79.51 Secondary malignant neoplasm of bone; R74.01 Elevation of levels of liver transaminase levels; Z17.0 Estrogen receptor positive status [ER+]; Z87.01 Personal history of pneumonia (recurrent)
CPT/HCPCS: 36415; 80048; 85025; 96372; 96402; J0897; J9217

== ENCOUNTER → 2024-06-11 11:09 | Outpatient (REF) | payer BC, SELFPAY | LOC: PET 11:09 | PROVIDERS: ATTENDING PHYSICIAN Internal Medicine Hematology & Oncology | DX: C50.412 Malignant neoplasm of upper-outer quadrant of left female breast (principal) | CPT/HCPCS: 78815; A9552 ==

== ENCOUNTER 2024-06-22 13:54 | Outpatient (RCR) | payer BC, SELFPAY ==
[2024-06-21 14:15] LABS: % Basophils 1.6 % (0-2); % Eosinophils 3.9 % (0-6); % Immature Granulocytes 0.3 % (0-0.5); % Monocytes 8.4 % (1.7-9.3); % Neutrophils 48.8 % (42.2-75.2); Absolute Basophils 0.1 10^3/uL (0-0.2); Absolute Eosinophils 0.2 10^3/uL (0-0.7); Absolute Lymphocytes 1.4 10^3/uL (1.2-3.4); Absolute Monocytes 0.3 10^3/uL (0.1-0.6); Absolute Neutrophils 1.9 10^3/uL (1.4-6.5); Hematocrit 35.7 % (37.0-47.0); Hemoglobin 12.6 g/dL (12.0-16.0); Mean Corp Hgb Conc. 35.3 g/dL (33.0-37.0); Mean Corpuscular Hgb 31.8 pg (27.0-31.0); Mean Corpuscular Volume 90.2 fL (81.0-99.0); Mean Platelet Volume 10.1 fL (7.4-10.4); Nucleated Red Blood Cells % 0 %; Platelet Count 232 10^3/uL (130-400); Red Blood Cell Count 3.96 10^6/uL (4.20-5.40); White Blood Cell Count 3.8 10^3/uL (4.8-10.8)
[2024-06-21 14:44] LABS: Blood Urea Nitrogen 12 mg/dl (7-17); Calcium 9.1 mg/dl (8.4-10.2); Carbon Dioxide 30 mmol/L (22-30); Chloride 103 mmol/L (98-107); Glucose 169 mg/dl (70-99); Potassium 3.9 mmol/L (3.5-5.1); Sodium 142 mmol/L (135-145); eGFR > 60.00
[2024-06-22 14:00] VITALS: BP 148/86
[2024-06-22] MEDS: ELIGARD 7.5 MG SC (14:16)
[2024-06-22] MEDS: XGEVA 120 MG SC (14:17)
== END 2024-06-25 09:59 | disposition home or self-care (01) ==
LOC: OID 13:54
PROVIDERS: ATTENDING PHYSICIAN Internal Medicine Hematology & Oncology; FAMILY PHYSICIAN Nurse Practitioner; PRIMARYCARE PHYSICIAN Internal Medicine
DX: C50.412 Malignant neoplasm of upper-outer quadrant of left female breast (principal); C79.51 Secondary malignant neoplasm of bone; R74.01 Elevation of levels of liver transaminase levels; Z17.0 Estrogen receptor positive status [ER+]; Z51.11 Encounter for antineoplastic chemotherapy; Z87.01 Personal history of pneumonia (recurrent)
CPT/HCPCS: 36415; 80048; 85025; 96372; 96402; J0897; J9217

== ENCOUNTER 2024-07-20 15:22 | Outpatient (RCR) | payer BC, SELFPAY ==
[2024-07-19 11:55] LABS: % Basophils 0.7 % (0-2); % Eosinophils 2.9 % (0-6); % Immature Granulocytes 0.2 % (0-0.5); % Lymphocytes 41.4 % (20.5-51.1); % Monocytes 8.3 % (1.7-9.3); % Neutrophils 46.5 % (42.2-75.2); Absolute Eosinophils 0.1 10^3/uL (0-0.7); Absolute Lymphocytes 1.7 10^3/uL (1.2-3.4); Absolute Monocytes 0.4 10^3/uL (0.1-0.6); Hemoglobin 12.9 g/dL (12.0-16.0); Mean Corp Hgb Conc. 34.9 g/dL (33.0-37.0); Mean Corpuscular Hgb 30.9 pg (27.0-31.0); Mean Corpuscular Volume 88.7 fL (81.0-99.0); Mean Platelet Volume 9.2 fL (7.4-10.4); Platelet Count 240 10^3/uL (130-400); Red Blood Cell Count 4.17 10^6/uL (4.20-5.40); Red Cell Dist. Width 12.4 % (11.5-14.5); White Blood Cell Count 4.2 10^3/uL (4.8-10.8)
[2024-07-19 13:13] LABS: ALT (SGPT) 35 U/L (0-35); AST (SGOT) 30 U/L (14-36); Albumin 4.9 g/dl (3.5-5.0); Alkaline Phosphatase 71 U/L (38-126); Blood Urea Nitrogen 11 mg/dl (7-17); Calcium 9.4 mg/dl (8.4-10.2); Carbon Dioxide 33 mmol/L (22-30); Chloride 99 mmol/L (98-107); Glucose 122 mg/dl (70-99); Potassium 3.4 mmol/L (3.5-5.1); Sodium 141 mmol/L (135-145); Total Bilirubin 0.5 mg/dl (0.2-1.3); Total Protein 8.1 g/dl (6.3-8.2); eGFR > 60.00
[2024-07-20 15:29] VITALS: BP 143/88
[2024-07-20] MEDS: XGEVA 120 MG SC (15:36)
[2024-07-20] MEDS: ELIGARD 7.5 MG SC (15:37)
== END 2024-07-23 10:57 | disposition home or self-care (01) ==
LOC: OID 15:22
PROVIDERS: ATTENDING PHYSICIAN Internal Medicine Hematology & Oncology; FAMILY PHYSICIAN Nurse Practitioner; PRIMARYCARE PHYSICIAN Internal Medicine
DX: C50.412 Malignant neoplasm of upper-outer quadrant of left female breast (principal); C79.51 Secondary malignant neoplasm of bone; R74.01 Elevation of levels of liver transaminase levels; Z17.0 Estrogen receptor positive status [ER+]; Z51.11 Encounter for antineoplastic chemotherapy
CPT/HCPCS: 36415; 80053; 85025; 96372; 96402; J0897; J9217

== ENCOUNTER → 2024-08-10 16:07 | Outpatient (REF) | payer BC, SELFPAY ==
[2024-08-10 16:52] LABS: Hematocrit 36.7 % (37.0-47.0); Hemoglobin 12.7 g/dL (12.0-16.0); Mean Corp Hgb Conc. 34.6 g/dL (33.0-37.0); Mean Corpuscular Volume 89.5 fL (81.0-99.0); Mean Platelet Volume 9.7 fL (7.4-10.4); Platelet Count 234 10^3/uL (130-400); Red Cell Dist. Width 12.8 % (11.5-14.5); White Blood Cell Count 4.3 10^3/uL (4.8-10.8)
[2024-08-10 16:56] LABS: Erythrocyte Sed Rate 39 mm/hour (0-20)
[2024-08-10 17:01] LABS: ALT (SGPT) 37 U/L (0-35); AST (SGOT) 36 U/L (14-36); Albumin 5.5 g/dl (3.5-5.0); Alkaline Phosphatase 68 U/L (38-126); Blood Urea Nitrogen 12 mg/dl (7-17); Calcium 9.6 mg/dl (8.4-10.2); Carbon Dioxide 30 mmol/L (22-30); Chloride 101 mmol/L (98-107); Glucose 113 mg/dl (70-99); Iron 96 ug/dl (37-170); Magnesium 2.4 mg/dl (1.6-2.3); Phosphorus 4.1 mg/dl (2.5-4.5); Potassium 3.9 mmol/L (3.5-5.1); Sodium 141 mmol/L (135-145); Total Bilirubin 1.2 mg/dl (0.2-1.3); Total Protein 9.1 g/dl (6.3-8.2); eGFR > 60.00
[2024-08-10 17:11] LABS: Percent Saturation 27 % (20-50); Total Iron Binding Capacity 353 ug/dl (265-497)
[2024-08-10 17:26] LABS: Uric Acid 4.8 mg/dl (2.5-6.2)
[2024-08-10 17:32] LABS: Hepatitis B Surface Antigen Negative (Negative)
[2024-08-10 17:37] LABS: TSH 0.82 uIU/ml (0.47-4.68)
[2024-08-10 17:50] LABS: Hepatitis B Core Ab, Total Negative (Negative); Hepatitis C Antibody Negative (Negative)
[2024-08-10 18:08] LABS: % Basophils 1.4 % (0-2); % Eosinophils 2.6 % (0-6); % Immature Granulocytes 0.2 % (0-0.5); % Lymphocytes 41.7 % (20.5-51.1); % Neutrophils 46.1 % (42.2-75.2); Absolute Basophils 0.1 10^3/uL (0-0.2); Absolute Eosinophils 0.1 10^3/uL (0-0.7); Absolute Lymphocytes 1.8 10^3/uL (1.2-3.4); Absolute Monocytes 0.3 10^3/uL (0.1-0.6); Nucleated Red Blood Cells % 0 %
== END ==
LOC: REG 16:07
PROVIDERS: ATTENDING PHYSICIAN Physician Assistant
DX: K75.9 Inflammatory liver disease, unspecified (principal); M06.4 Inflammatory polyarthropathy; M79.641 Pain in right hand; Z22.7 Latent tuberculosis
CPT/HCPCS: 36415; 80053; 82728; 83540; 83550; 83735; 83970; 84100; 84443; 84550; 85025; 85652; 86038; 86140; 86200; 86430; 86704; 86803; 87340

== ENCOUNTER 2024-08-17 14:41 | Outpatient (RCR) | payer BC, SELFPAY ==
[2024-08-16 15:19] LABS: % Basophils 0.6 % (0-2); % Eosinophils 2.4 % (0-6); % Immature Granulocytes 0.2 % (0-0.5); % Lymphocytes 37.1 % (20.5-51.1); % Monocytes 7.4 % (1.7-9.3); % Neutrophils 52.3 % (42.2-75.2); Absolute Eosinophils 0.1 10^3/uL (0-0.7); Absolute Lymphocytes 1.9 10^3/uL (1.2-3.4); Absolute Monocytes 0.4 10^3/uL (0.1-0.6); Absolute Neutrophils 2.6 10^3/uL (1.4-6.5); Hematocrit 35.5 % (37.0-47.0); Hemoglobin 12.3 g/dL (12.0-16.0); Mean Corp Hgb Conc. 34.6 g/dL (33.0-37.0); Mean Corpuscular Hgb 31.1 pg (27.0-31.0); Mean Corpuscular Volume 89.6 fL (81.0-99.0); Mean Platelet Volume 9.6 fL (7.4-10.4); Platelet Count 233 10^3/uL (130-400); Red Blood Cell Count 3.96 10^6/uL (4.20-5.40); Red Cell Dist. Width 12.6 % (11.5-14.5)
[2024-08-16 16:18] LABS: ALT (SGPT) 38 U/L (0-35); AST (SGOT) 34 U/L (14-36); Albumin 4.9 g/dl (3.5-5.0); Alkaline Phosphatase 64 U/L (38-126); Blood Urea Nitrogen 9 mg/dl (7-17); Calcium 9.2 mg/dl (8.4-10.2); Carbon Dioxide 28 mmol/L (22-30); Chloride 100 mmol/L (98-107); Glucose 120 mg/dl (70-99); Potassium 3.2 mmol/L (3.5-5.1); Sodium 140 mmol/L (135-145); Total Bilirubin 0.7 mg/dl (0.2-1.3); Total Protein 7.6 g/dl (6.3-8.2); eGFR > 60.00
[2024-08-17 14:46] VITALS: BP 142/87
[2024-08-17] MEDS: XGEVA 120 MG SC (14:56)
[2024-08-17] MEDS: ELIGARD 7.5 MG SC (14:56)
== END 2024-08-20 09:30 | disposition home or self-care (01) ==
LOC: OID 14:41
PROVIDERS: ATTENDING PHYSICIAN Internal Medicine Hematology & Oncology; FAMILY PHYSICIAN Nurse Practitioner; PRIMARYCARE PHYSICIAN Internal Medicine
DX: C50.412 Malignant neoplasm of upper-outer quadrant of left female breast (principal); C79.51 Secondary malignant neoplasm of bone; R74.01 Elevation of levels of liver transaminase levels; Z17.0 Estrogen receptor positive status [ER+]; Z51.11 Encounter for antineoplastic chemotherapy; Z87.01 Personal history of pneumonia (recurrent)
CPT/HCPCS: 36415; 80053; 85025; 96401; 96402; J0897; J9217

== ENCOUNTER 2024-09-14 15:15 | Outpatient (RCR) | payer BC, SELFPAY ==
[2024-09-13 15:41] LABS: ALT (SGPT) 40 U/L (0-35); AST (SGOT) 33 U/L (14-36); Albumin 4.5 g/dl (3.5-5.0); Alkaline Phosphatase 66 U/L (38-126); Blood Urea Nitrogen 9 mg/dl (7-17); Calcium 9.5 mg/dl (8.4-10.2); Carbon Dioxide 32 mmol/L (22-30); Chloride 101 mmol/L (98-107); Glucose 115 mg/dl (70-99); Potassium 3.8 mmol/L (3.5-5.1); Sodium 141 mmol/L (135-145); Total Bilirubin 0.4 mg/dl (0.2-1.3); Total Protein 7.8 g/dl (6.3-8.2); eGFR > 60.00
[2024-09-13 16:08] LABS: % Basophils 1.5 % (0-2); % Eosinophils 2.5 % (0-6); % Immature Granulocytes 0.8 % (0-0.5); % Lymphocytes 50.6 % (20.5-51.1); % Monocytes 10.7 % (1.7-9.3); % Neutrophils 33.9 % (42.2-75.2); Absolute Basophils 0.1 10^3/uL (0-0.2); Absolute Eosinophils 0.1 10^3/uL (0-0.7); Absolute Monocytes 0.4 10^3/uL (0.1-0.6); Absolute Neutrophils 1.3 10^3/uL (1.4-6.5); Hematocrit 36.9 % (37.0-47.0); Mean Corp Hgb Conc. 35.2 g/dL (33.0-37.0); Mean Corpuscular Hgb 31.6 pg (27.0-31.0); Mean Corpuscular Volume 89.8 fL (81.0-99.0); Mean Platelet Volume 9.6 fL (7.4-10.4); Nucleated Red Blood Cells % 0 %; Platelet Count 240 10^3/uL (130-400); Red Blood Cell Count 4.11 10^6/uL (4.20-5.40); Red Cell Dist. Width 12.5 % (11.5-14.5); White Blood Cell Count 3.9 10^3/uL (4.8-10.8)
[2024-09-14 15:20] VITALS: BP 126/87
[2024-09-14] MEDS: ELIGARD 7.5 MG SC (15:26)
[2024-09-14] MEDS: XGEVA 120 MG SC (15:26)
== END 2024-09-17 09:14 | disposition home or self-care (01) ==
LOC: OID 15:15
PROVIDERS: ATTENDING PHYSICIAN Internal Medicine Hematology & Oncology; FAMILY PHYSICIAN Nurse Practitioner; PRIMARYCARE PHYSICIAN Internal Medicine
DX: C50.412 Malignant neoplasm of upper-outer quadrant of left female breast (principal); C79.51 Secondary malignant neoplasm of bone; R74.01 Elevation of levels of liver transaminase levels; Z17.0 Estrogen receptor positive status [ER+]; Z51.11 Encounter for antineoplastic chemotherapy
CPT/HCPCS: 36415; 80053; 85025; 96372; 96402; J0897; J9217

== ENCOUNTER → 2024-09-26 11:57 | Outpatient (REF) | payer BC, SELFPAY | LOC: MRI 3T 11:57 | PROVIDERS: ATTENDING PHYSICIAN Nurse Practitioner Adult Health; FAMILY PHYSICIAN Internal Medicine | DX: R93.7 Abnormal findings on diagnostic imaging of other parts of musculoskeletal system (principal); C79.51 Secondary malignant neoplasm of bone; C50.412 Malignant neoplasm of upper-outer quadrant of left female breast; R74.01 Elevation of levels of liver transaminase levels | CPT/HCPCS: 70553; A9575 ==

== ENCOUNTER 2024-10-12 14:53 | Outpatient (RCR) | payer BC, SELFPAY ==
[2024-10-11 14:33] LABS: % Basophils 1.1 % (0-2); % Eosinophils 3.4 % (0-6); % Immature Granulocytes 0.3 % (0-0.5); % Lymphocytes 43.3 % (20.5-51.1); % Monocytes 8.4 % (1.7-9.3); % Neutrophils 43.5 % (42.2-75.2); Absolute Eosinophils 0.1 10^3/uL (0-0.7); Absolute Lymphocytes 1.6 10^3/uL (1.2-3.4); Absolute Monocytes 0.3 10^3/uL (0.1-0.6); Absolute Neutrophils 1.6 10^3/uL (1.4-6.5); Hematocrit 34.6 % (37.0-47.0); Mean Corp Hgb Conc. 34.7 g/dL (33.0-37.0); Mean Corpuscular Hgb 31.7 pg (27.0-31.0); Mean Corpuscular Volume 91.3 fL (81.0-99.0); Mean Platelet Volume 9.4 fL (7.4-10.4); Platelet Count 209 10^3/uL (130-400); Red Blood Cell Count 3.79 10^6/uL (4.20-5.40); White Blood Cell Count 3.6 10^3/uL (4.8-10.8)
[2024-10-11 15:35] LABS: ALT (SGPT) 43 U/L (0-35); AST (SGOT) 36 U/L (14-36); Albumin 4.8 g/dl (3.5-5.0); Alkaline Phosphatase 62 U/L (38-126); Blood Urea Nitrogen 11 mg/dl (7-17); Calcium 9.4 mg/dl (8.4-10.2); Carbon Dioxide 30 mmol/L (22-30); Chloride 105 mmol/L (98-107); Glucose 143 mg/dl (70-99); Potassium 3.8 mmol/L (3.5-5.1); Sodium 144 mmol/L (135-145); Total Bilirubin 0.6 mg/dl (0.2-1.3); Total Protein 7.6 g/dl (6.3-8.2); eGFR > 60.00
[2024-10-12 15:03] VITALS: BP 142/74
[2024-10-12] MEDS: XGEVA 120 MG SC (15:07)
[2024-10-12] MEDS: ELIGARD 7.5 MG SC (15:07)
== END 2024-10-15 09:02 | disposition home or self-care (01) ==
LOC: OID 14:53
PROVIDERS: ATTENDING PHYSICIAN Internal Medicine Hematology & Oncology; FAMILY PHYSICIAN Nurse Practitioner; PRIMARYCARE PHYSICIAN Internal Medicine
DX: C50.412 Malignant neoplasm of upper-outer quadrant of left female breast (principal); C79.51 Secondary malignant neoplasm of bone; R74.01 Elevation of levels of liver transaminase levels; Z51.11 Encounter for antineoplastic chemotherapy; Z17.0 Estrogen receptor positive status [ER+]; Z87.01 Personal history of pneumonia (recurrent)
CPT/HCPCS: 36415; 80053; 85025; 96372; 96402; J0897; J9217

== ENCOUNTER → 2024-11-08 09:47 | Outpatient (REF) | payer BC, SELFPAY ==
[2024-11-08 10:45] LABS: Hemoglobin 12.7 g/dL (12.0-16.0); Mean Corp Hgb Conc. 34.3 g/dL (33.0-37.0); Mean Corpuscular Hgb 31.9 pg (27.0-31.0); Mean Platelet Volume 9.8 fL (7.4-10.4); Platelet Count 207 10^3/uL (130-400); Red Blood Cell Count 3.98 10^6/uL (4.20-5.40); Red Cell Dist. Width 12.8 % (11.5-14.5); White Blood Cell Count 4.6 10^3/uL (4.8-10.8)
[2024-11-08 11:26] LABS: % Basophils 1.3 % (0-2); % Immature Granulocytes 0.4 % (0-0.5); % Lymphocytes 46.3 % (20.5-51.1); % Monocytes 8.3 % (1.7-9.3); % Neutrophils 40.7 % (42.2-75.2); Absolute Basophils 0.1 10^3/uL (0-0.2); Absolute Eosinophils 0.1 10^3/uL (0-0.7); Absolute Lymphocytes 2.1 10^3/uL (1.2-3.4); Absolute Monocytes 0.4 10^3/uL (0.1-0.6); Absolute Neutrophils 1.9 10^3/uL (1.4-6.5); Nucleated Red Blood Cells % 0 %
[2024-11-08 11:39] LABS: ALT (SGPT) 36 U/L (0-35); AST (SGOT) 25 U/L (14-36); Albumin 4.7 g/dl (3.5-5.0); Alkaline Phosphatase 51 U/L (38-126); Blood Urea Nitrogen 9 mg/dl (7-17); Calcium 9.3 mg/dl (8.4-10.2); Carbon Dioxide 30 mmol/L (22-30); Chloride 105 mmol/L (98-107); Glucose 102 mg/dl (70-99); Potassium 3.7 mmol/L (3.5-5.1); Sodium 145 mmol/L (135-145); Total Bilirubin 0.6 mg/dl (0.2-1.3); Total Protein 7.6 g/dl (6.3-8.2); eGFR > 60.00
== END ==
LOC: REG 09:47
PROVIDERS: ATTENDING PHYSICIAN Internal Medicine Hematology & Oncology; FAMILY PHYSICIAN Nurse Practitioner
DX: R93.7 Abnormal findings on diagnostic imaging of other parts of musculoskeletal system (principal); C79.51 Secondary malignant neoplasm of bone; C50.412 Malignant neoplasm of upper-outer quadrant of left female breast; R74.01 Elevation of levels of liver transaminase levels
CPT/HCPCS: 36415; 80053; 85025

== ENCOUNTER 2024-12-07 15:01 | Outpatient (RCR) | payer BC, SELFPAY ==
[2024-11-09 15:15] VITALS: BP 148/82
[2024-11-09] MEDS: ELIGARD 7.5 MG SC (15:23)
[2024-11-09] MEDS: XGEVA 120 MG SC (15:30)
[2024-12-06 15:21] LABS: % Basophils 0.8 % (0-2); % Monocytes 6.8 % (1.7-9.3); % Neutrophils 48.4 % (42.2-75.2); Absolute Eosinophils 0.1 10^3/uL (0-0.7); Absolute Lymphocytes 1.6 10^3/uL (1.2-3.4); Absolute Monocytes 0.3 10^3/uL (0.1-0.6); Absolute Neutrophils 1.9 10^3/uL (1.4-6.5); Hematocrit 35.9 % (37.0-47.0); Hemoglobin 12.4 g/dL (12.0-16.0); Mean Corp Hgb Conc. 34.5 g/dL (33.0-37.0); Mean Corpuscular Hgb 31.3 pg (27.0-31.0); Mean Corpuscular Volume 90.7 fL (81.0-99.0); Mean Platelet Volume 9.4 fL (7.4-10.4); Platelet Count 219 10^3/uL (130-400); Red Blood Cell Count 3.96 10^6/uL (4.20-5.40); Red Cell Dist. Width 12.7 % (11.5-14.5)
[2024-12-06 16:16] LABS: Blood Urea Nitrogen 7 mg/dl (7-17); Carbon Dioxide 28 mmol/L (22-30); Chloride 106 mmol/L (98-107); Glucose 162 mg/dl (70-99); Potassium 3.6 mmol/L (3.5-5.1); Sodium 142 mmol/L (135-145); eGFR > 60.00
[2024-12-07 15:00] VITALS: BP 127/82
[2024-12-07] MEDS: ELIGARD 7.5 MG SC (15:16)
[2024-12-07] MEDS: XGEVA 120 MG SC (15:16)
== END 2024-12-08 23:59 | disposition home or self-care (01) ==
LOC: OID 15:01
PROVIDERS: ATTENDING PHYSICIAN Internal Medicine Hematology & Oncology; FAMILY PHYSICIAN Nurse Practitioner; PRIMARYCARE PHYSICIAN Internal Medicine
DX: C50.412 Malignant neoplasm of upper-outer quadrant of left female breast (principal); C79.51 Secondary malignant neoplasm of bone; R74.01 Elevation of levels of liver transaminase levels; Z17.0 Estrogen receptor positive status [ER+]; Z51.11 Encounter for antineoplastic chemotherapy; Z87.01 Personal history of pneumonia (recurrent)
CPT/HCPCS: 36415; 80048; 85025; 96372; 96402; J0897; J9217

== ENCOUNTER → 2024-12-12 08:44 | Outpatient (REF) | payer BC, SELFPAY | LOC: PET 08:44 | PROVIDERS: ATTENDING PHYSICIAN Internal Medicine Hematology & Oncology | DX: C50.412 Malignant neoplasm of upper-outer quadrant of left female breast (principal) | CPT/HCPCS: 78815; A9552 ==

== ENCOUNTER 2025-01-04 08:26 | Outpatient (RCR) | payer BC, SELFPAY ==
[2025-01-03 14:37] LABS: % Basophils 0.8 % (0-2); % Eosinophils 2.7 % (0-6); % Immature Granulocytes 0.2 % (0-0.5); % Lymphocytes 34.8 % (20.5-51.1); % Monocytes 8.1 % (1.7-9.3); % Neutrophils 53.4 % (42.2-75.2); Absolute Eosinophils 0.1 10^3/uL (0-0.7); Absolute Lymphocytes 1.8 10^3/uL (1.2-3.4); Absolute Monocytes 0.4 10^3/uL (0.1-0.6); Absolute Neutrophils 2.8 10^3/uL (1.4-6.5); Hematocrit 35.7 % (37.0-47.0); Hemoglobin 12.5 g/dL (12.0-16.0); Mean Corpuscular Hgb 31.8 pg (27.0-31.0); Mean Corpuscular Volume 90.8 fL (81.0-99.0); Mean Platelet Volume 9.6 fL (7.4-10.4); Platelet Count 226 10^3/uL (130-400); Red Blood Cell Count 3.93 10^6/uL (4.20-5.40); Red Cell Dist. Width 12.6 % (11.5-14.5); White Blood Cell Count 5.3 10^3/uL (4.8-10.8)
[2025-01-03 16:17] LABS: ALT (SGPT) 33 U/L (0-35); AST (SGOT) 30 U/L (14-36); Alkaline Phosphatase 58 U/L (38-126); Blood Urea Nitrogen 7 mg/dl (7-17); Calcium 9.8 mg/dl (8.4-10.2); Carbon Dioxide 29 mmol/L (22-30); Chloride 106 mmol/L (98-107); Glucose 107 mg/dl (70-99); Potassium 3.3 mmol/L (3.5-5.1); Sodium 144 mmol/L (135-145); Total Bilirubin 0.5 mg/dl (0.2-1.3); Total Protein 8.1 g/dl (6.3-8.2); eGFR > 60.00
[2025-01-04 08:40] VITALS: BP 127/74
[2025-01-04] MEDS: ELIGARD 7.5 MG SC (08:47)
[2025-01-04] MEDS: XGEVA 120 MG SC (08:48)
== END 2025-01-07 08:14 | disposition home or self-care (01) ==
LOC: OID 08:26
PROVIDERS: ATTENDING PHYSICIAN Internal Medicine Hematology & Oncology; FAMILY PHYSICIAN Nurse Practitioner; PRIMARYCARE PHYSICIAN Internal Medicine
DX: C50.412 Malignant neoplasm of upper-outer quadrant of left female breast (principal); Z51.11 Encounter for antineoplastic chemotherapy; C79.51 Secondary malignant neoplasm of bone; R74.01 Elevation of levels of liver transaminase levels; Z17.0 Estrogen receptor positive status [ER+]; Z87.01 Personal history of pneumonia (recurrent)
CPT/HCPCS: 36415; 80053; 85025; 96372; 96402; J0897; J9217

== ENCOUNTER 2025-02-01 14:44 | Outpatient (RCR) | payer BC, SELFPAY ==
[2025-01-31 14:39] LABS: Hematocrit 35.9 % (37.0-47.0); Hemoglobin 12.2 g/dL (12.0-16.0); Mean Corp Hgb Conc. 34.0 g/dL (33.0-37.0); Mean Corpuscular Volume 91.3 fL (81.0-99.0); Platelet Count 201 10^3/uL (130-400); Red Cell Dist. Width 12.8 % (11.5-14.5)
[2025-01-31 15:15] LABS: ALT (SGPT) 23 U/L (0-35); AST (SGOT) 24 U/L (14-36); Albumin 4.6 g/dl (3.5-5.0); Alkaline Phosphatase 52 U/L (38-126); Blood Urea Nitrogen 9 mg/dl (7-17); Calcium 9.4 mg/dl (8.4-10.2); Carbon Dioxide 29 mmol/L (22-30); Chloride 108 mmol/L (98-107); Glucose 151 mg/dl (70-99); Potassium 3.6 mmol/L (3.5-5.1); Sodium 145 mmol/L (135-145); Total Protein 7.6 g/dl (6.3-8.2); eGFR > 60.00
[2025-02-01 14:45] VITALS: BP 120/80
[2025-02-01] MEDS: XGEVA 120 MG SC (15:06)
[2025-02-01] MEDS: ELIGARD 7.5 MG SC (15:07)
== END 2025-02-04 09:51 | disposition home or self-care (01) ==
LOC: OID 14:44
PROVIDERS: ATTENDING PHYSICIAN Internal Medicine Hematology & Oncology; FAMILY PHYSICIAN Nurse Practitioner; PRIMARYCARE PHYSICIAN Internal Medicine
DX: C50.412 Malignant neoplasm of upper-outer quadrant of left female breast (principal); Z51.11 Encounter for antineoplastic chemotherapy; C79.51 Secondary malignant neoplasm of bone; R74.01 Elevation of levels of liver transaminase levels; Z17.0 Estrogen receptor positive status [ER+]
CPT/HCPCS: 36415; 80053; 85025; 96372; 96402; J0897; J9217

== ENCOUNTER 2025-03-01 15:34 | Outpatient (RCR) | payer BC, SELFPAY ==
[2025-02-28 14:28] LABS: Hematocrit 36.9 % (37.0-47.0); Hemoglobin 12.7 g/dL (12.0-16.0); Mean Corp Hgb Conc. 34.4 g/dL (33.0-37.0); Mean Corpuscular Volume 91.3 fL (81.0-99.0); Platelet Count 206 10^3/uL (130-400); Red Cell Dist. Width 12.7 % (11.5-14.5)
[2025-02-28 16:14] LABS: ALT (SGPT) 36 U/L (0-35); AST (SGOT) 29 U/L (14-36); Albumin 4.9 g/dl (3.5-5.0); Alkaline Phosphatase 51 U/L (38-126); Blood Urea Nitrogen 9 mg/dl (7-17); Calcium 9.7 mg/dl (8.4-10.2); Carbon Dioxide 31 mmol/L (22-30); Chloride 104 mmol/L (98-107); Glucose 131 mg/dl (70-99); Potassium 3.5 mmol/L (3.5-5.1); Sodium 144 mmol/L (135-145); Total Protein 7.9 g/dl (6.3-8.2); eGFR > 60.00
[2025-03-01 15:35] VITALS: BP 126/73
[2025-03-01] MEDS: ELIGARD 7.5 MG SC (15:50)
[2025-03-01] MEDS: XGEVA 120 MG SC (15:51)
== END 2025-03-04 09:26 | disposition home or self-care (01) ==
LOC: OID 15:34
PROVIDERS: ATTENDING PHYSICIAN Internal Medicine Hematology & Oncology; FAMILY PHYSICIAN Nurse Practitioner; PRIMARYCARE PHYSICIAN Internal Medicine
DX: Z51.11 Encounter for antineoplastic chemotherapy (principal); C50.412 Malignant neoplasm of upper-outer quadrant of left female breast; C79.51 Secondary malignant neoplasm of bone; R74.01 Elevation of levels of liver transaminase levels; Z17.0 Estrogen receptor positive status [ER+]; Z87.01 Personal history of pneumonia (recurrent)
CPT/HCPCS: 36415; 80053; 85025; 96372; 96402; J0897; J9217

== ENCOUNTER → 2025-03-25 14:12 | Outpatient (REF) | payer BC, SELFPAY ==
[2025-03-25 15:08] LABS: Hematocrit 37.4 % (37.0-47.0); Hemoglobin 12.9 g/dL (12.0-16.0); Mean Corp Hgb Conc. 34.5 g/dL (33.0-37.0); Mean Corpuscular Volume 90.3 fL (81.0-99.0); Nucleated Red Blood Cells % 0 %; Platelet Count 203 10^3/uL (130-400); Red Cell Dist. Width 12.7 % (11.5-14.5)
[2025-03-25 15:18] LABS: ALT (SGPT) 37 U/L (0-35); AST (SGOT) 30 U/L (14-36); Albumin 4.8 g/dl (3.5-5.0); Alkaline Phosphatase 60 U/L (38-126); Blood Urea Nitrogen 9 mg/dl (7-17); Calcium 9.4 mg/dl (8.4-10.2); Carbon Dioxide 32 mmol/L (22-30); Chloride 102 mmol/L (98-107); Glucose 151 mg/dl (70-99); Potassium 3.2 mmol/L (3.5-5.1); Sodium 144 mmol/L (135-145); Total Protein 8.0 g/dl (6.3-8.2); eGFR > 60.00
[2025-03-25 15:20] LABS: C-Reactive Protein 7.30 mg/L (0.0-10.00)
[2025-03-25 15:29] LABS: Urine Character Clear (Clear)
[2025-03-25 16:17] LABS: Urine Squamous Cell 0-2 /LPF (Few); Urine Urothelial Cell 0-2 /LPF (FEW)
[2025-03-25 16:19] LABS: Urine Red Blood Cell 0-2 /HPF (0-2); Urine White Cell 0-2 /HPF (0-5)
[2025-03-28 02:38] LABS: ANA, IgG Reflex to HEp-2 None Detected (None Detected)
== END ==
LOC: REG 14:12
PROVIDERS: ATTENDING PHYSICIAN Student in an Organized Health Care Education/Training Program; FAMILY PHYSICIAN Nurse Practitioner; OTHER PHYSICIAN Internal Medicine Hematology & Oncology
DX: M06.4 Inflammatory polyarthropathy (principal); C50.912 Malignant neoplasm of unspecified site of left female breast; D86.9 Sarcoidosis, unspecified; M06.9 Rheumatoid arthritis, unspecified; M25.512 Pain in left shoulder; M45.9 Ankylosing spondylitis of unspecified sites in spine; M79.641 Pain in right hand; M79.642 Pain in left hand; I73.00 Raynaud's syndrome without gangrene; M54.42 Lumbago with sciatica, left side; M79.18 Myalgia, other site
CPT/HCPCS: 36415; 72110; 72200; 80053; 81003; 81015; 82570; 84156; 85025; 85652; 86038; 86140; 86160

== ENCOUNTER 2025-03-29 14:27 | Outpatient (RCR) | payer BC, SELFPAY ==
[2025-03-28 14:25] LABS: Hematocrit 35.7 % (37.0-47.0); Hemoglobin 12.6 g/dL (12.0-16.0); Mean Corp Hgb Conc. 35.3 g/dL (33.0-37.0); Mean Corpuscular Volume 89.9 fL (81.0-99.0); Platelet Count 201 10^3/uL (130-400); Red Cell Dist. Width 12.7 % (11.5-14.5)
[2025-03-28 15:33] LABS: ALT (SGPT) 34 U/L (0-35); AST (SGOT) 31 U/L (14-36); Albumin 4.8 g/dl (3.5-5.0); Alkaline Phosphatase 53 U/L (38-126); Blood Urea Nitrogen 6 mg/dl (7-17); Calcium 9.3 mg/dl (8.4-10.2); Carbon Dioxide 32 mmol/L (22-30); Chloride 104 mmol/L (98-107); Glucose 118 mg/dl (70-99); Potassium 3.0 mmol/L (3.5-5.1); Sodium 143 mmol/L (135-145); Total Protein 8.0 g/dl (6.3-8.2); eGFR > 60.00
[2025-03-29 14:30] VITALS: BP 146/85
[2025-03-29] MEDS: XGEVA 120 MG SC (14:46)
[2025-03-29] MEDS: ELIGARD 7.5 MG SC (14:46)
== END 2025-04-01 09:30 | disposition home or self-care (01) ==
LOC: OID 14:27
PROVIDERS: ATTENDING PHYSICIAN Internal Medicine Hematology & Oncology; FAMILY PHYSICIAN Nurse Practitioner; PRIMARYCARE PHYSICIAN Internal Medicine
DX: C50.412 Malignant neoplasm of upper-outer quadrant of left female breast (principal); Z51.11 Encounter for antineoplastic chemotherapy; C79.51 Secondary malignant neoplasm of bone; R74.01 Elevation of levels of liver transaminase levels; Z17.0 Estrogen receptor positive status [ER+]
CPT/HCPCS: 36415; 80053; 85025; 96372; 96402; J0897; J9217

== ENCOUNTER → 2025-04-26 09:20 | Outpatient (REF) | payer BC, SELFPAY ==
[2025-04-26 11:03] LABS: Glucose 88 mg/dl (70-99)
== END ==
LOC: PET 09:20
PROVIDERS: ATTENDING PHYSICIAN Internal Medicine Hematology & Oncology
DX: C50.412 Malignant neoplasm of upper-outer quadrant of left female breast (principal); R93.7 Abnormal findings on diagnostic imaging of other parts of musculoskeletal system; R74.01 Elevation of levels of liver transaminase levels
CPT/HCPCS: 36415; 78815; 82947; A9552

== ENCOUNTER 2025-04-26 13:02 | Outpatient (RCR) | payer BC, SELFPAY ==
[2025-04-25 14:24] LABS: Hematocrit 36.1 % (37.0-47.0); Hemoglobin 12.4 g/dL (12.0-16.0); Mean Corp Hgb Conc. 34.3 g/dL (33.0-37.0); Mean Corpuscular Volume 92.1 fL (81.0-99.0); Platelet Count 233 10^3/uL (130-400); Red Cell Dist. Width 13.3 % (11.5-14.5)
[2025-04-25 16:11] LABS: ALT (SGPT) 34 U/L (0-35); AST (SGOT) 26 U/L (14-36); Albumin 4.8 g/dl (3.5-5.0); Alkaline Phosphatase 49 U/L (38-126); Blood Urea Nitrogen 10 mg/dl (7-17); Calcium 9.4 mg/dl (8.4-10.2); Carbon Dioxide 32 mmol/L (22-30); Chloride 105 mmol/L (98-107); Glucose 106 mg/dl (70-99); Potassium 3.1 mmol/L (3.5-5.1); Sodium 143 mmol/L (135-145); Total Protein 7.9 g/dl (6.3-8.2); eGFR > 60.00
[2025-04-26 13:11] VITALS: BP 148/94
[2025-04-26] MEDS: ELIGARD 7.5 MG SC (13:30)
[2025-04-26] MEDS: XGEVA 120 MG SC (13:31)
== END 2025-04-29 11:17 | disposition home or self-care (01) ==
LOC: OID 13:02
PROVIDERS: ATTENDING PHYSICIAN Internal Medicine Hematology & Oncology; FAMILY PHYSICIAN Nurse Practitioner; PRIMARYCARE PHYSICIAN Internal Medicine
DX: C50.412 Malignant neoplasm of upper-outer quadrant of left female breast (principal); Z51.11 Encounter for antineoplastic chemotherapy; C79.51 Secondary malignant neoplasm of bone; R74.01 Elevation of levels of liver transaminase levels; Z17.0 Estrogen receptor positive status [ER+]
CPT/HCPCS: 36415; 80053; 85025; 96372; 96402; J0897; J9217

== ENCOUNTER 2025-06-21 10:56 | Outpatient (RCR) | payer BC, SELFPAY ==
[2025-06-20 11:46] LABS: Hematocrit 37.9 % (37.0-47.0); Hemoglobin 13.1 g/dL (12.0-16.0); Mean Corp Hgb Conc. 34.6 g/dL (33.0-37.0); Mean Corpuscular Volume 91.5 fL (81.0-99.0); Platelet Count 243 10^3/uL (130-400); Red Cell Dist. Width 12.7 % (11.5-14.5)
[2025-06-20 12:36] LABS: ALT (SGPT) 28 U/L (0-35); AST (SGOT) 26 U/L (14-36); Albumin 4.9 g/dl (3.5-5.0); Alkaline Phosphatase 62 U/L (38-126); Blood Urea Nitrogen 11 mg/dl (7-17); Calcium 9.1 mg/dl (8.4-10.2); Carbon Dioxide 28 mmol/L (22-30); Chloride 100 mmol/L (98-107); Glucose 129 mg/dl (70-99); Potassium 3.3 mmol/L (3.5-5.1); Sodium 140 mmol/L (135-145); Total Protein 8.3 g/dl (6.3-8.2); eGFR > 60.00
[2025-06-21] MEDS: ELIGARD 7.5 MG SC (11:07)
[2025-06-21] MEDS: XGEVA 120 MG SC (11:08)
[2025-06-21 11:12] VITALS: BP 139/8
== END 2025-06-24 11:26 | disposition home or self-care (01) ==
LOC: OID 10:56
PROVIDERS: ATTENDING PHYSICIAN Internal Medicine Hematology & Oncology; FAMILY PHYSICIAN Nurse Practitioner; PRIMARYCARE PHYSICIAN Internal Medicine
DX: C50.412 Malignant neoplasm of upper-outer quadrant of left female breast (principal); Z51.11 Encounter for antineoplastic chemotherapy; C79.51 Secondary malignant neoplasm of bone; R74.01 Elevation of levels of liver transaminase levels; Z17.0 Estrogen receptor positive status [ER+]; Z87.01 Personal history of pneumonia (recurrent)
CPT/HCPCS: 36415; 80053; 85025; 96401; 96402; J0897; J9217